=== PATIENT | male | born 1935 | race Caucasian/White ===

== ENCOUNTER → 2019-03-26 08:55 | Outpatient (BNVA) | payer MEDICARE, OTHER, SELFPAY | PROVIDERS: Family Provider Nurse Practitioner; PCP Nurse Practitioner; Visit Provider Nurse Practitioner | DX: I10 Essential (primary) hypertension (principal); E11.65 Type 2 diabetes mellitus with hyperglycemia; E78.2 Mixed hyperlipidemia; R42 Dizziness and giddiness; E11.9 Type 2 diabetes mellitus without complications; I25.10 Atherosclerotic heart disease of native coronary artery without angina pectoris | CPT/HCPCS: 80053; 83036 ==

== ENCOUNTER 2019-09-01 09:22 | Outpatient (CLI) | payer MEDICARE, OTHER, SELFPAY ==
--- NOTE | 2019-09-01 09:30 | USCV_ITS ---
Phoenix Veras Age: 83 Gender: M : 1935 Exam Date: 09/01/2019 09:44 Ordering Phys: Rafael Castro MD ([email or web address]) Technologist: Deja Calderon Exam Location: [facility] – [place] Indication: STENOSIS Risk Factors: Previous Vascular Surgery: Right Brachial BP: / Left Brachial BP: / Right Left Velocity (cm/s) Spectral Plaque Velocity (cm/s) Spectral Plaque Syst/Diast Broadening Syst/Diast Broadening 59.50/ 16.50 Prox CCA 57.70 / 12.40 65.05/ 13.75 Mid CCA 50.40 / 8.80 54.00/ 7.70 Distal CCA 38.20 / 6.20 51.80/ 16.50 Prox ICA 35.20 / 12.20 61.70/ 15.40 Mid ICA 37.90 / 10.20 87.10/ 29.80 Distal ICA 87.10 / 18.30 109.20 ECA 78.00 1.36 ICA/CCA 1.73 Antegrade Vertebral Antegrade 43.00/ 12.10 cm/s 47.00/ 12.60 cm/s Tri Subclavian Tri 66.50 139.6 0 FINDINGS Moderate dense irregular plaques of the right bifurcation and proximal internal carotid artery. Minimal plaques at the left bifurcation and proximal carotid artery. Antegrade flow in the vertebral arteries bilaterally. Normal Doppler flow velocities in the external carotid arteries bilaterally. CONCLUSIONS Moderate dense irregular plaques of the right bifurcation and proximal internal carotid arterywith velocity elevation consistent with 16-49% stenosis. Minimal plaques at the left bifurcation and proximal carotid artery. Compared to the study from 05/13/2018, there may not be a significant change Dr Rafael Castro MD [facility] (Electronically Signed) Final Date: 02 September 2019 13:39 S
== END 2019-09-01 09:23 | disposition home or self-care (01) ==
LOC: US 09:27
PROVIDERS: PCP Nurse Practitioner; Visit Provider Internal Medicine Cardiovascular Disease
DX: I65.23 Occlusion and stenosis of bilateral carotid arteries (principal)
CPT/HCPCS: 93880

== ENCOUNTER → 2019-09-08 08:59 | Outpatient (BNVA) | payer MEDICARE, OTHER, SELFPAY | PROVIDERS: PCP Nurse Practitioner; Visit Provider Nurse Practitioner | DX: E11.65 Type 2 diabetes mellitus with hyperglycemia (principal); I10 Essential (primary) hypertension; E78.2 Mixed hyperlipidemia; I25.10 Atherosclerotic heart disease of native coronary artery without angina pectoris; Z79.4 Long term (current) use of insulin | CPT/HCPCS: 80053; 80061; 81000; 82044; 83036 ==

== ENCOUNTER → 2019-12-08 08:26 | Outpatient (BNVA) | payer MEDICARE, OTHER, SELFPAY | PROVIDERS: PCP Nurse Practitioner; Visit Provider Nurse Practitioner | DX: E11.65 Type 2 diabetes mellitus with hyperglycemia (principal); Z79.4 Long term (current) use of insulin; I10 Essential (primary) hypertension; I25.10 Atherosclerotic heart disease of native coronary artery without angina pectoris; E78.2 Mixed hyperlipidemia; I65.23 Occlusion and stenosis of bilateral carotid arteries | CPT/HCPCS: 80053; 83036 ==

== ENCOUNTER → 2020-02-01 08:50 | Outpatient (BNVA) | payer MEDICARE, OTHER, SELFPAY | PROVIDERS: PCP Nurse Practitioner; Visit Provider Nurse Practitioner | DX: I10 Essential (primary) hypertension (principal); E11.65 Type 2 diabetes mellitus with hyperglycemia; I25.10 Atherosclerotic heart disease of native coronary artery without angina pectoris; E78.2 Mixed hyperlipidemia; Z79.4 Long term (current) use of insulin | CPT/HCPCS: 80053; 80061; 83036 ==

== ENCOUNTER → 2020-05-05 12:13 | Outpatient (BNVA) | payer MEDICARE, OTHER, SELFPAY | PROVIDERS: PCP Nurse Practitioner; Visit Provider Nurse Practitioner | DX: I10 Essential (primary) hypertension (principal); E11.65 Type 2 diabetes mellitus with hyperglycemia; Z79.4 Long term (current) use of insulin; E78.2 Mixed hyperlipidemia; I25.10 Atherosclerotic heart disease of native coronary artery without angina pectoris; E13.49 Other specified diabetes mellitus with other diabetic neurological complication | CPT/HCPCS: 82043 ==

== ENCOUNTER → 2020-07-29 08:30 | Outpatient (BNVA) | payer MEDICARE, OTHER, SELFPAY | PROVIDERS: PCP Nurse Practitioner; Visit Provider Nurse Practitioner | DX: E11.65 Type 2 diabetes mellitus with hyperglycemia (principal); I25.10 Atherosclerotic heart disease of native coronary artery without angina pectoris; E78.2 Mixed hyperlipidemia; Z79.4 Long term (current) use of insulin; I10 Essential (primary) hypertension | CPT/HCPCS: 80053; 80061; 81000; 83036 ==

== ENCOUNTER 2020-08-09 07:20 | Inpatient (IN) | payer MEDICARE, OTHER, SELFPAY ==
[2020-08-09] VITALS (74 sets, daily range): BP systolic 98–183; BP diastolic 44–83; PULSE 47–117; RESP 14–35; TEMP 36.3–37.1; O2SAT 90–100; BMI 31.3
--- NOTE | 2020-08-09 07:27 | XRR_ITS ---
PROCEDURE INFORMATION: Exam: XR Chest Exam date and time: 08/09/2020 7:42 AM Age: 84 years old Clinical indication: Pain; Chest pressure; Additional info: Chest pain TECHNIQUE: Imaging protocol: XR of the chest. Views: 1 view. COMPARISON: CR Chest 2 views* [id number] 10/04/2016 12:39 PM FINDINGS: Lungs: There are diffuse bilateral interstitial pulmonary infiltrates. There is mild pulmonary vascular prominence. These findings could be due to heart failure with interstitial pulmonary edema though superimposed interstitial pneumonia cannot be excluded. Pleural spaces: Small pleural effusion blunts the right costophrenic angle. Heart/Mediastinum: The heart is not enlarged. There is calcification of the aortic arch. Bones/joints: Unremarkable. XR/XR chest 1V portable [id number] IMPRESSION: 1. There are diffuse bilateral interstitial pulmonary infiltrates with mild pulmonary vascular congestion. This may be due to heart failure with interstitial edema though superimposed interstitial pneumonia cannot be excluded. 2. Minimal right pleural effusion.
--- NOTE | 2020-08-09 07:28 | ECG_ITS ---
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 Measurements Intervals [place] Rate: 112 P: 56 MD: 238 QRS: 20 QRSD: 94 T: 105 QT: 281 QTc: 384 Interpretive Statements SINUS TACHYCARDIA WITH FIRST DEGREE AV BLOCK WITH OCCASIONAL VENTRICULAR PREMATURE COMPLEXES POSSIBLE ANTERIOR MYOCARDIAL INFARCTION , OF INDETERMINATE AGE [30 ms Q WAVE IN V3/V4, OR R < 0.2 mV IN V4] Compared to ECG 09/19/2015 17:23:41 First degree AV block now present Sinus rhythm no longer present Myocardial infarct finding still present Electronically Signed On 08-09-2020 19:06:56 CDT by Tree Hoffman M.D. [id number]
[2020-08-09] MEDS: heparin 5,000 unit/mL INJ 1 mL 4000 UNIT IVP (07:38)
[2020-08-09 07:39] LABS: Basophils # 0.1 10^3/uL (0.0-0.1); Basophils % 0.3 %; Eosinophils # 0.2 10^3/uL (0.0-0.8); Eosinophils % 1.2 %; Hematocrit 43.1 % (42.0-52.0); Hemoglobin 14.1 g/dL (11.7-16.6); Lymphocytes # 5.7 10^3/uL (0.8-4.8); Lymphocytes % 28.3 %; Mean Corpuscular HGB Conc 32.7 g/dL (30.0-36.0); Mean Corpuscular Hemoglobin 29.8 pg (28.0-34.0); Mean Corpuscular Volume 91.1 fL (80-94); Mean Platelet Volume 9.4 fL (7.4-10.4); Monocytes # 1.5 10^3/uL (0.2-0.9); Monocytes % 7.3 %; Neutrophils % 62.5 %; Nucleated Red Blood Cells % 0 %; Platelet Count 393 10^3/cmm (130-400); Red Blood Count 4.73 10^6/uL (4.1-5.3); Red Cell Distribution Width 13.7 % (12.1-15.1)
[2020-08-09] MEDS: clopidogrel 300 mg Tablet PO (07:40)
[2020-08-09] MEDS: aspirin 325 mg Tablet PO (07:40)
[2020-08-09] MEDS: FUROsemide 10 mg/mL SDV 10mL 60 MG IVP (07:40)
[2020-08-09] MEDS: nitroglycerin drip 50 MG/250 ML PREMIX IV (07:40)
--- NOTE | 2020-08-09 07:47 | W.ED.CHESTPA ---
HPI - Chest Pain General: Chief Complaint: Chest Pain Stated Complaint: CP History of Present Illness: HPI narrative: 84-year-old male with a history of heart disease. Presents emergency room with acute onset of chest pain this morning began while at rest radiating to the left side of his neck and his left shoulder. Adam distress on arrival with oxygen sats under difficult to assess where I will be tracking sats in the 60s. He does appear cyanotic he is in with lip having labored breathing with significant Rales. Patient has a known history of heart disease his last press test and echo were done in 2013. Echo at that time showed an EF of 40%. There is a note in the [facility] office records about his stent in the LAD and residual distal LAD lesion that was 40 to 50% that was in 1999 at another facility. Patient denies fever sweats or chills. He does usually take Plavix and Lasix. He has not been having chest pain or symptoms prior to today. MD complaint: chest pain Pertinent past history: coronary artery disease Onset (ago): hour(s) Timing of current episode: constant, increasing and still present Onset: during rest Pain location: left chest Pain radiation: neck and left shoulder Severity: severe Associated symptoms: Reports dyspnea and nausea; Deny abdominal pain, fever(s) or vomiting Review of Systems Const: Reports: fatigue; Denies: fever(s), chills, body aches, change in appetite or malaise Card: Reports: chest pain, edema, dyspnea on exertion and orthopnea Resp: Reports: dyspnea and chest congestion; Denies: productive cough or non-productive cough GI: Reports: nausea; Denies: abdominal pain, vomiting, hematemesis, coffee ground emesis, diarrhea, constipation, bloating, hematochezia or melena PFSH ED PFSH: Medical History Atherosclerotic heart disease of [place] coronary artery without angina pectoris Benign essential hypertension Bilateral carotid artery stenosis CVA (cerebral vascular accident) Enrolled in chronic care management History of ischemic cardiomyopathy Mixed hyperlipidemia Osteoarthritis Type 2 diabetes mellitus with hyperglycemia Surgical History H/O heart artery stent Family History Son CAD (coronary artery disease) Diabetes Father CAD (coronary artery disease) Sister Cancer Diabetes Brother Diabetes Family/Other Diabetes Other Heart disease Hypertension Denies family history of Clotting disorder Dementia Chronic kidney disease (CKD) Suicide Anesthesia complication Bleeding disorder Lung disease Stroke Social History Smoking and tobacco status: former smoker Smoking risk assessment/counseling performed?: No Alcohol intake: never Desire information about alcohol rehabilitation?: No Counseling given: No Desire information about substance/drug rehabilitation?: No Counseling given: No Caregiver/support person: No Lives independently: Yes Housing: House Marital status: / Number of children: 6 Pets and animals: Yes History of recent travel: No Current gender identity: Male Physical Exam Const: COMMON NORMALS: no acute distress GENERAL APPEARANCE: cooperative and comfortable ORIENTATION/CONSCIOUSNESS: Yes awake, Yes oriented to person, Yes oriented to place and Yes oriented to time HENMT: COMMON NORMALS: normocephalic, atraumatic, hearing grossly normal bilaterally and external ears normal HEAD & SCALP: normocephalic and atraumatic EXTERNAL EAR: Yes external ears normal Neck/C-Spine: COMMON NORMALS: no JVD Resp: COMMON NORMALS: normal respiratory effort, No retractions, No use of accessory muscles and clear to auscultation bilaterally AUSCULTATION: clear to auscultation bilaterally Cardio: COMMON NORMALS: no JVD, regular rate, regular rhythm and No murmurs present (Cardio) RATE: regular rate RHYTHM: regular rhythm GI: COMMON NORMALS: Soft to palpation and No hepatosplenomegaly present AUSCULTATION: Yes normoactive bowel sounds PALPATION: Yes Soft to palpation, No Tenderness to palpation present (GI), No Guarding due to palpation present (GI) and Yes No hepatosplenomegaly present Extremity: COMMON NORMALS: normal to inspection, capillary refill normal and no calf tenderness GENERAL: Yes edema Neuro: SENSORIUM/ORIENTATION: Yes oriented to person, Yes oriented to place and Yes oriented to time Skin: COMMON NORMALS: no rashes or lesions noted GENERAL SKIN EXAM: no rashes or lesions noted Procedures Central Line Placement Right SC: Time Out Performed: Yes Patient Placed on Monitor/Pulse Ox: Yes Prep: mask, gown and gloves Central Line Prep: Chlorhexidine scrub Ultrasound Used for Placement: Yes Central Line Lumen Inserted: triple Post Procedure: sutured in place, good blood return, all ports aspirated, flushed, capped and sterile dressing applied Post Procedure X-Ray: tip of catheter in good position Patient Tolerated Procedure: well Complications: none Intubation Time out performed: Yes sedative: Etomidate Mg Given: 20 paralytic: Succinylcholine Mg Given: 100 Laryngoscope: fiber optic video scope Assist Device Used: fiber optic device ET Tube Size: 8 ET Tube Uncuffed: No Tube Secured Depth (cm): 20 Tube Placement Confirmation: visualized tube passing through cords, equal breath sounds bilaterally, no breath sounds over epigastrium and confirmation by capnometry Patient Tolerated Procedure: well Intubation Complications: none Course Vital Signs: Vital signs: Vital Signs Temperature 97.8 F 08/10/20 04:00 Pulse Rate 70 08/10/20 06:30 Respiratory Rate 14 08/10/20 06:04 Blood Pressure 120/58 08/10/20 06:30 Pulse Oximetry 97 08/10/20 06:30 MDM - Chest Pain MDM Narrative: Medical decision making narrative: Initial EKG shows ST elevation in V1-4. This is new compared to an old EKG of 09/19/2015. Initial labs were pending he was given 60 Lasix started on BiPAP and also started on nitro however the nitro dropped his pressure down to 90 systolic, initially been 183 systolic and was turned off. Is also been given aspirin and heparin. STEMI alert was called as soon as the EKG resulted EKG forwarded to Dr. Michelle he felt it was of more heart strain from heart failure recommended continued resuscitation and evaluation and he would see the patient later. Repeat EKG when breathing had improved showed continued but lessened ST elevation. Arrangements had been made for admission and patient went into sustained V. tach. He was cardioverted at 120 J and returned to a sinus rhythm within 1 minute of that the patient resumed AV V. tach rhythm which she was cardioverted out of again with 120 J. He was then given 300 of amiodarone and started on amiodarone drip. His blood pressure began to worsen and he was started on dopamine and then Levophed. At various times patient rhythm began to change there was a concern he would go into V. tach again. I elected to intubate the patient because of his deteriorating condition and he was intubated by RSI without complication. Central line was placed because of large numbers of drips that were required. He was placed on fentanyl and Versed for sedation while on ventilator. He is also on amiodarone dopamine and Levophed. Patient transferred to ICU Dr. Lewis has assumed care of the patient Dr. Michelle has been consulted. After the patient had been cardioverted x2 Dr. Michelle did come to the trauma room seeing the patient reviewed the EKGs recommended admission to the ICU concurred with her treatment thus far.. Lab Data: Labs: Lab Results 08/09/20 08/09/20 08/09/20 Range/Units 07:29 07:30 07:30 WBC 20.0 H (4.0-10.0) 10^3/ uL RBC 4.73 (4.1-5.3) 10^6/u L Hgb 14.1 (11.7-16.6) g/dL Hct 43.1 (42.0-52.0) % MCV 91.1 (80-94) fL MCH 29.8 (28.0-34.0) pg MCHC 32.7 (30.0-36.0) g/dL RDW 13.7 (12.1-15.1) % Plt Count 393 (130-400) 10^3/c mm MPV 9.4 (7.4-10.4) fL Neut % (Auto) 62.5 % Lymph % (Auto) 28.3 % [place] % (Auto) 7.3 % Eos % (Auto) 1.2 % Baso % (Auto) 0.3 % Neut # (Auto) 12.50 H (1.8-7.7) 10^3/u L Lymph # (Auto) 5.7 H (0.8-4.8) 10^3/u L [place] # (Auto) 1.5 H (0.2-0.9) 10^3/u L Eos # (Auto) 0.2 (0.0-0.8) 10^3/u L Baso # (Auto) 0.1 (0.0-0.1) 10^3/u L Nucleated RBC % (a uto) 0 % Nucleated RBCs # 0.0 /100WBC PT (12.1-14.9) SECO NDS INR (0.8-1.2) APTT (23.9-36.7) SECO NDS D-Dimer (0-0.59) ug/mIFE U Specimen Type Arterial Sample Site Brachial, left ABG pH 7.21 L (7.35-7.45) ABG pCO2 58.3 H (35-45) mmHg ABG pO2 148.0 H (80.0-100.0) mmH g ABG HCO3 23.3 (22-26) mmol/L ABG O2 Saturation 98.4 ABG Base Excess -5.4 L (-2.0-2.0) mmol/ L Brandon Test N/a A-a O2 Gradient 64.7 H (5-10) mmHg Hematocrit 44.1 (42-52) % Hgb O2 Saturation 96.7 (95-100) % Carboxyhemoglobin 0.6 (0.4-20.1) %THgb Methemoglobin 1.1 (0.4-1.5) % Total Hemoglobin 14.4 (14-18) g/dL Sodium 133.0 133 L (131-143) mmol/L Potassium 4.2 4.5 (3.5-5.0) mmol/L Glucose 285.0 H 254 H (70-115) mg/dL Ionized Calcium 1.2 (1.1-1.4) mmol/L O2 Delivery Device Nrb O2 Liters/Min 15.0 % FiO2 100.0 % Corporate Claims Examiner ID Amh Chloride 96 L (98-107) mmol/L Carbon Dioxide 21 L (22-29) mmol/L Anion Gap 20.5 H (5-19) BUN 13 (8-23) mg/dL Creatinine 0.7 (0.7-1.2) mg/dL GFR Calculation Not Reportable Calculated Osmolal ity 285 (285-295) mOsm/k g Lactate (0.5-2.2) mmol/L Calcium 9.0 (8.5-10.5) mg/dL Magnesium (1.7-2.3) mg/dL Total Bilirubin 0.5 (0.15-1.2) mg/dL AST 17 (0-40) U/L ALT 10 (0-41) U/L Alkaline Phosphata se 72 (40-130) IU/L Troponin T Baselin e (0-15) ng/L C-Reactive Protein (0.0-4.9) mg/L NT-Pro-B Natriuret Pep (0-450) pg/mL Total Protein 7.2 (6.6-8.7) g/dL Albumin 4.0 (3.5-5.2) g/dL Globulin 3.2 (1.3-4.6) g/dL Procalcitonin (0-0.5) ng/mL Serum Ketones (Negative) 08/09/20 08/09/20 08/09/20 Range/Units 07:30 07:30 07:30 WBC (4.0-10.0) 10^3/ uL RBC (4.1-5.3) 10^6/u L Hgb (11.7-16.6) g/dL Hct (42.0-52.0) % MCV (80-94) fL MCH (28.0-34.0) pg MCHC (30.0-36.0) g/dL RDW (12.1-15.1) % Plt Count (130-400) 10^3/c mm MPV (7.4-10.4) fL Neut % (Auto) % Lymph % (Auto) % [place] % (Auto) % Eos % (Auto) % Baso % (Auto) % Neut # (Auto) (1.8-7.7) 10^3/u L Lymph # (Auto) (0.8-4.8) 10^3/u L [place] # (Auto) (0.2-0.9) 10^3/u L Eos # (Auto) (0.0-0.8) 10^3/u L Baso # (Auto) (0.0-0.1) 10^3/u L Nucleated RBC % (a uto) % Nucleated RBCs # /100WBC PT 14.10 (12.1-14.9) SECO NDS INR 1.06 (0.8-1.2) APTT 30.3 (23.9-36.7) SECO NDS D-Dimer 1.26 H (0-0.59) ug/mIFE U Specimen Type Sample Site ABG pH (7.35-7.45) ABG pCO2 (35-45) mmHg ABG pO2 (80.0-100.0) mmH g ABG HCO3 (22-26) mmol/L ABG O2 Saturation ABG Base Excess (-2.0-2.0) mmol/ L Brandon Test A-a O2 Gradient (5-10) mmHg Hematocrit (42-52) % Hgb O2 Saturation (95-100) % Carboxyhemoglobin (0.4-20.1) %THgb Methemoglobin (0.4-1.5) % Total Hemoglobin (14-18) g/dL Sodium (131-143) mmol/L Potassium (3.5-5.0) mmol/L Glucose (70-115) mg/dL Ionized Calcium (1.1-1.4) mmol/L O2 Delivery Device O2 Liters/Min % FiO2 % Corporate Claims Examiner ID Chloride (98-107) mmol/L Carbon Dioxide (22-29) mmol/L Anion Gap (5-19) BUN (8-23) mg/dL Creatinine (0.7-1.2) mg/dL GFR Calculation Calculated Osmolal ity (285-295) mOsm/k g Lactate (0.5-2.2) mmol/L Calcium (8.5-10.5) mg/dL Magnesium (1.7-2.3) mg/dL Total Bilirubin (0.15-1.2) mg/dL AST (0-40) U/L ALT (0-41) U/L Alkaline Phosphata se (40-130) IU/L Troponin T Baselin e 31 H (0-15) ng/L C-Reactive Protein (0.0-4.9) mg/L NT-Pro-B Natriuret Pep (0-450) pg/mL Total Protein (6.6-8.7) g/dL Albumin (3.5-5.2) g/dL Globulin (1.3-4.6) g/dL Procalcitonin (0-0.5) ng/mL Serum Ketones (Negative) 08/09/20 08/09/20 08/09/20 Range/Units 07:30 07:46 07:46 WBC (4.0-10.0) 10^3/ uL RBC (4.1-5.3) 10^6/u L Hgb (11.7-16.6) g/dL Hct (42.0-52.0) % MCV (80-94) fL MCH (28.0-34.0) pg MCHC (30.0-36.0) g/dL RDW (12.1-15.1) % Plt Count (130-400) 10^3/c mm MPV (7.4-10.4) fL Neut % (Auto) % Lymph % (Auto) % [place] % (Auto) % Eos % (Auto) % Baso % (Auto) % Neut # (Auto) (1.8-7.7) 10^3/u L Lymph # (Auto) (0.8-4.8) 10^3/u L [place] # (Auto) (0.2-0.9) 10^3/u L Eos # (Auto) (0.0-0.8) 10^3/u L Baso # (Auto) (0.0-0.1) 10^3/u L Nucleated RBC % (a uto) % Nucleated RBCs # /100WBC PT (12.1-14.9) SECO NDS INR (0.8-1.2) APTT (23.9-36.7) SECO NDS D-Dimer (0-0.59) ug/mIFE U Specimen Type Sample Site ABG pH (7.35-7.45) ABG pCO2 (35-45) mmHg ABG pO2 (80.0-100.0) mmH g ABG HCO3 (22-26) mmol/L ABG O2 Saturation ABG Base Excess (-2.0-2.0) mmol/ L Brandon Test A-a O2 Gradient (5-10) mmHg Hematocrit (42-52) % Hgb O2 Saturation (95-100) % Carboxyhemoglobin (0.4-20.1) %THgb Methemoglobin (0.4-1.5) % Total Hemoglobin (14-18) g/dL Sodium (131-143) mmol/L Potassium (3.5-5.0) mmol/L Glucose (70-115) mg/dL Ionized Calcium (1.1-1.4) mmol/L O2 Delivery Device O2 Liters/Min % FiO2 % Corporate Claims Examiner ID Chloride (98-107) mmol/L Carbon Dioxide (22-29) mmol/L Anion Gap (5-19) BUN (8-23) mg/dL Creatinine (0.7-1.2) mg/dL GFR Calculation Calculated Osmolal ity (285-295) mOsm/k g Lactate 3.5 H (0.5-2.2) mmol/L Calcium (8.5-10.5) mg/dL Magnesium (1.7-2.3) mg/dL Total Bilirubin (0.15-1.2) mg/dL AST (0-40) U/L ALT (0-41) U/L Alkaline Phosphata se (40-130) IU/L Troponin T Baselin e (0-15) ng/L C-Reactive Protein 15.1 H (0.0-4.9) mg/L NT-Pro-B Natriuret Pep 1061 H (0-450) pg/mL Total Protein (6.6-8.7) g/dL Albumin (3.5-5.2) g/dL Globulin (1.3-4.6) g/dL Procalcitonin 0.04 (0-0.5) ng/mL Serum Ketones Negative (Negative) 08/09/20 Range/Units 07:46 WBC (4.0-10.0) 10^3/ uL RBC (4.1-5.3) 10^6/u L Hgb (11.7-16.6) g/dL Hct (42.0-52.0) % MCV (80-94) fL MCH (28.0-34.0) pg MCHC (30.0-36.0) g/dL RDW (12.1-15.1) % Plt Count (130-400) 10^3/c mm MPV (7.4-10.4) fL Neut % (Auto) % Lymph % (Auto) % [place] % (Auto) % Eos % (Auto) % Baso % (Auto) % Neut # (Auto) (1.8-7.7) 10^3/u L Lymph # (Auto) (0.8-4.8) 10^3/u L [place] # (Auto) (0.2-0.9) 10^3/u L Eos # (Auto) (0.0-0.8) 10^3/u L Baso # (Auto) (0.0-0.1) 10^3/u L Nucleated RBC % (a uto) % Nucleated RBCs # /100WBC PT (12.1-14.9) SECO NDS INR (0.8-1.2) APTT (23.9-36.7) SECO NDS D-Dimer (0-0.59) ug/mIFE U Specimen Type Sample Site ABG pH (7.35-7.45) ABG pCO2 (35-45) mmHg ABG pO2 (80.0-100.0) mmH g ABG HCO3 (22-26) mmol/L ABG O2 Saturation ABG Base Excess (-2.0-2.0) mmol/ L Brandon Test A-a O2 Gradient (5-10) mmHg Hematocrit (42-52) % Hgb O2 Saturation (95-100) % Carboxyhemoglobin (0.4-20.1) %THgb Methemoglobin (0.4-1.5) % Total Hemoglobin (14-18) g/dL Sodium (131-143) mmol/L Potassium (3.5-5.0) mmol/L Glucose (70-115) mg/dL Ionized Calcium (1.1-1.4) mmol/L O2 Delivery Device O2 Liters/Min % FiO2 % Corporate Claims Examiner ID Chloride (98-107) mmol/L Carbon Dioxide (22-29) mmol/L Anion Gap (5-19) BUN (8-23) mg/dL Creatinine (0.7-1.2) mg/dL GFR Calculation Calculated Osmolal ity (285-295) mOsm/k g Lactate (0.5-2.2) mmol/L Calcium (8.5-10.5) mg/dL Magnesium 2.1 (1.7-2.3) mg/dL Total Bilirubin (0.15-1.2) mg/dL AST (0-40) U/L ALT (0-41) U/L Alkaline Phosphata se (40-130) IU/L Troponin T Baselin e (0-15) ng/L C-Reactive Protein (0.0-4.9) mg/L NT-Pro-B Natriuret Pep (0-450) pg/mL Total Protein (6.6-8.7) g/dL Albumin (3.5-5.2) g/dL Globulin (1.3-4.6) g/dL Procalcitonin (0-0.5) ng/mL Serum Ketones (Negative) EKG Data^: EKG 1: EKG interpretation date: 08/09/20 EKG interpretation time: 07:29 Ischemic changes: acute STEMI Interpretation: ST elevation in V1 through V4. Tachycardic at 112 VT interval prolonged 0.[address] elevation ME. Critical Care Time Critical Care Time: Critical Care Time: Yes Total Critical Care Time: 60 Attestation: This case had a high probability of a clinically significant, sudden, or life threatening deterioration of this patient's condition which required my full and direct attention, intervention and personal management. Discharge Plan Discharge Patient Disposition: Admitted As Inpatient Admit Provider: Oswaldo Lewis Clinical Impression: ST elevation myocardial infarction (STEMI), Wide-complex tachycardia, DM (diabetes mellitus), secondary, with neurologic complications, History of ischemic cardiomyopathy, Type 2 diabetes mellitus with hyperglycemia, Atherosclerotic heart disease of [place] coronary artery without angina pectoris Condition: Stable Coding Level of Care Code ED Bad Credit Collector for Chg Fwd Exam Comprehensive
--- NOTE | 2020-08-09 07:51 | USCV_ITS ---
Phoenix Veras Age: 84 Gender: M : 1935 Exam Date: 08/09/2020 08:02 Ordering Phys: Rickie Dotson DO Technologist: Altagracia Black [place] [facility] [place]: CHF BP: / HR: 108 Rhythm: Sinus Technical Quality: Technically difficult study MEASUREMENTS (Male / Female) Normal Values 2D ECHO LV Diastolic Diameter PLAX 4.3 cm 4.2 - 5.9 / 3.9 - 5.3 cm LV Systolic Diameter PLAX 3.4 cm LV Chamber Size 3.8 cm IVS Diastolic Thickness 1.0 cm 0.6 - 1.0 / 0.6 - 0.9 cm IVS Systolic Thickness 1.1 cm LVPW Diastolic Thickness 0.6 cm 0.6 - 1.0 / 0.6 - 0.9 cm LVPW Systolic Thickness 1.0 cm RV Chamber Size 3.5 cm LVOT Diameter 2.0 cm LV Ejection Fraction 2D Teich 41.2 % LA Diameter 2.6 cm LA Width 2.9 cm LA Height 3.7 cm RA Width 4.8 cm RA Height 3.6 cm Aorta at Sinotubular Diameter 2.2 cm M-MODE LV Diastolic Diameter MM 4.6 cm 4.2 - 5.9 / 3.9 - 5.3 cm LV Systolic Diameter MM 3.6 cm LV Ejection Fraction MM Teich 46.7 % IVS Diastolic Thickness MM 0.9 cm 0.6 - 1.0 / 0.6 - 0.9 cm IVS Systolic Thickness MM 1.0 cm LVPW Diastolic Thickness MM 0.8 cm 0.6 - 1.0 / 0.6 - 0.9 cm LVPW Systolic Thickness MM 0.7 cm RV Diastolic Diameter MM 2.9 cm Aortic Annulus Diameter 3.0 cm LA Ao Ratio MM 0.9 MV E Point Septal Separation 0.3 cm DOPPLER AV Peak Velocity 119.0 cm/s LVOT Peak Velocity 88.0 cm/s AV Area Cont Eq vti 2.4 cm squared AV Area Cont Eq pk 2.3 cm squared MV E' Velocity 8.0 cm/s TR Peak Velocity 249.3 cm/s TR Peak Gradient 24.9 mmHg TV Peak E Velocity 83.2 cm/s Right Atrial Pressure 8.0 mmHg Pulmonary Artery Systolic Pressu 32.9 mmHg PV Peak Velocity 100.0 cm/s RV Acceleration Time 0.1 s RV Ejection Time 0.2 s RV AcT/ET 0.4 FINDINGS Left Ventricle Normal left ventricular cavity size. Moderately decreased left ventricular systolic function. Left ventricular ejection fraction is estimated at 45 %. Right Ventricle The right ventricle is normal in size and function. Right Atrium The right atrium is normal in size. Left Atrium The left atrium is normal in size. Mitral Valve Structurally normal mitral valve without significant stenosis or prolapse. There is no mitral regurgitation. Aortic Valve Aortic valve sclerosis without stenosis or regurgitation. Tricuspid Valve Mild tricuspid valve regurgitation. Pulmonic Valve Structurally normal pulmonic valve without significant stenosis. There is no pulmonic regurgitation. Pericardium Normal pericardium without effusion. Aorta Normal ascending aorta dimension. CONCLUSIONS 1-Normal left ventricular cavity size. Moderately decreased left ventricular systolic function. Left ventricular ejection fraction is estimated at 45 %. 2-Aortic valve sclerosis without stenosis or regurgitation. 3-Structurally normal mitral valve without significant stenosis or prolapse. There is no mitral regurgitation. 4-There is no pericardial effusion. 5-No significant change since the prior echocardiogram study of 10/23/11. Delmy Santacruz MD (Electronically Signed) Final Date: 09 August 2020 22:10 S
[2020-08-09 07:57] LABS: INR 1.06 (0.8-1.2); Partial Thromboplastin Time 30.3 SECONDS (23.9-36.7)
[2020-08-09 08:03] LABS: Alanine Aminotransferase 10 U/L (0-41); Alkaline Phosphatase 72 IU/L (40-130); Blood Urea Nitrogen 13 mg/dL (8-23); Carbon Dioxide 21 mmol/L (22-29); Chloride 96 mmol/L (98-107); Globulin 3.2 g/dL (1.3-4.6); Glucose 254 mg/dL (65-115); Osmolality Calculated 285 mOsm/kg (285-295); Sodium 133 mmol/L (136-145); Total Bilirubin 0.5 mg/dL (0.15-1.2); Total Protein 7.2 g/dL (6.6-8.7)
[2020-08-09 08:04] LABS: Troponin(5th) Baseline 31 ng/L (0-15)
[2020-08-09 08:06] LABS: ABG PCO2 58.3 mmHg (35-45); ABG PH Result 7.21 (7.35-7.45); Alveolar-Arterial Oxygen Gradi 64.7 mmHg (5-10); Arterial Blood Gas Hematocrit 44.1 % (42-52); Base Excess ABG -5.4 mmol/L (-2.0-2.0); Blood Gas Operator Identificat AMH; Blood Gas Sample Site Brachial, left; Blood Gas Sample Type Arterial; Carboxyhemoglobin 0.6 %THgb (0.4-20.1); HCO3 ABG 23.3 mmol/L (22-26); HGB O2 Sat 96.7 % (95-100); Ionized Calcium Level - ABG 1.2 mmol/L (1.1-1.4); Methemoglobin 1.1 % (0.4-1.5); Oxygen Device NRB; Oxygen Saturation ABG 98.4; Potassium Level - ABG 4.2 mmol/L (3.5-5.0); Total Hemoglobin 14.4 g/dL (14-18)
[2020-08-09 08:08] LABS: Anion Gap 20.5 (5-19); Potassium 4.5 mmol/L (3.5-5.1)
[2020-08-09 08:09] LABS: Aspartate Amino Transferase 17 U/L (0-40)
[2020-08-09 08:11] LABS: Ketone (Acetest) Serum Negative (Negative)
--- NOTE | 2020-08-09 08:56 | PC.NURSE ---
Son in room , no acute distress. ' Blood cultures drawn, sent to lab
[2020-08-09 08:59] LABS: ABG PCO2 39.8 mmHg (35-45); ABG PH Result 7.37 (7.35-7.45); Arterial Blood Gas Hematocrit 43.7 % (42-52); Base Excess ABG -2.5 mmol/L (-2.0-2.0); Blood Gas Allen Test Pos; Blood Gas Sample Type Arterial; Carboxyhemoglobin 0.1 %THgb (0.4-20.1); HCO3 ABG 22.7 mmol/L (22-26); Ionized Calcium Level - ABG 1.2 mmol/L (1.1-1.4); Methemoglobin 0.9 % (0.4-1.5); Total Hemoglobin 14.3 g/dL (14-18)
[2020-08-09 08:59] LABS: Lactate (Lactic Acid level) 3.5 mmol/L (0.5-2.2)
[2020-08-09 09:02] LABS: Alveolar-Arterial Oxygen Gradi 26.1 mmHg (5-10); Blood Gas Operator Identificat MONRO; Blood Gas Sample Site Radial, right; Oxygen Device BIPAP
[2020-08-09 09:08] LABS: NT Pro B Type Natriuretic Pept 1061 pg/mL (0-450); Procalcitonin 0.04 ng/mL (0-0.5)
--- NOTE | 2020-08-09 09:09 | CT_ITS ---
WS: [id number] CTA OF THE CHEST WITH PULMONARY EMBOLISM PROTOCOL TECHNIQUE: High-resolution contrast enhanced CTA of the chest with coronal and sagittal reformatted i mages with pulmonary embolism protocol. MIP images are also reviewed. CLINICAL INFORMATION: sob COMPARISON: None. DLP: 572.[address] scans at [facility] use at least one of these dose optimization techniques: automat ed exposure control; mA and/or kV adjustment per patient size (includes targeted exams where dose is matched to clinical indication); or iterative reconstruction. FINDINGS: Proximal main pulmonary arteries are normal. Normal segmental and subsegmental pulmonary arteries. No filling defects to indicate pulmonary embolus. Normal caliber thoracic aorta. Aortic calcification. Coronary calcification. Small right greater than left pulmonary effusions with compressive atelectasis in the lung bases. Flu id along the left fissure. Contained fluid along the right horizontal fissure. Slight hazy infiltrate s or atelectasis in both upper lobes. Endotracheal tube at the thoracic inlet. This could be advanced. No axillary lymphadenopathy. Calcifi ed right hilar lymph nodes. Adrenal glands are normal. CT/CT angio chest PE protcl [id number] IMPRESSION: 1. No evidence of pulmonary embolus. 2. Endotracheal tube with tip above the thoracic inlet. This could be advanced . 3. Small right greater than left pleural effusions. Compressive atelectasis in the lung bases. 4. Slight hazy infiltrates or atelectasis in both upper lobes.
[2020-08-09] MEDS: morphine 4 mg/mL SDV 1 mL IVP (09:14)
[2020-08-09] MEDS: ondansetron 2 mg/ML SDV 2 mL 4 MG IVP (09:15)
[2020-08-09 09:19] LABS: C Reactive Protein 15.1 mg/L (0.0-4.9)
[2020-08-09] MEDS: DOPamine drip 400 MG/250 ML PREMIX 17 MG IV (09:21)
[2020-08-09 09:22] LABS: D Dimer 1.26 ug/mIFEU (0-0.59)
[2020-08-09] MEDS: vecuronium 10 mg SDV IVP (09:26)
[2020-08-09] MEDS: succinylcholine 20 mg/mL SDV 10mL 100 MG IVP (09:27)
--- NOTE | 2020-08-09 09:28 | ECG_ITS ---
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 Measurements Intervals Gravel Switch Rate: 109 P: 262 TN: 235 QRS: -51 QRSD: 142 T: 88 QT: 353 QTc: 476 Interpretive Statements SINUS TACHYCARDIA WITH FIRST DEGREE AV BLOCK MARKED LEFT AXIS DEVIATION [QRS AXIS < -30] INTRAVENTRICULAR CONDUCTION DELAY [130+ ms QRS DURATION] Compared to ECG 08/09/2020 07:29:44 Left-axis deviation now present Intraventricular conduction delay now present Myocardial infarct finding no longer present Electronically Signed On 08-09-2020 19:14:38 CDT by Tree Hoffman M.D. [email or web address]/store/NU/[id number]/[id number] f
[2020-08-09] MEDS: midazolam 1 mg/mL INJ 2 mL 3 MG IVP (09:33)
[2020-08-09 09:41] LABS: Troponin 5 2HR 75.57 ng/L (0-15)
--- NOTE | 2020-08-09 09:59 | XRR_ITS ---
PROCEDURE INFORMATION: Exam: XR Chest Exam date and time: 08/09/2020 10:14 AM Age: 84 years old Clinical indication: Device placement; Other: Central line; Additional info: Post central line placement TECHNIQUE: Imaging protocol: XR of the chest. Views: 1 view. COMPARISON: CR XR chest 1V portable [id number] 08/09/2020 7:31 AM FINDINGS: Tubes, catheters and devices: A right subclavian catheter is present with the tip projecting in the SVC. Lungs: There are hazy perihilar interstitial infiltrates with vascular congestion. This has improved since previous study and consistent with heart failure with interstitial edema. There is opacification of the left base consistent with lower lobe atelectasis. . Pleural spaces: Small pleural effusions are present. No pneumothorax. Heart/Mediastinum: The cardiac silhouette is not enlarged. There is calcification of the aortic arch. Bones/joints: Unremarkable. XR/XR chest 1V portable [id number] IMPRESSION: 1. Satisfactory right subclavian catheter position. 2. Improving interstitial infiltrates. 3. Worsening left lower lobe atelectasis and left pleural effusion
[2020-08-09 10:02] LABS: Troponin 5 2HR Delta 44.57 ABS# (0-10)
[2020-08-09] MEDS: neomycin-poly-bacitracin oint 0.9 gm Pkt 1 APPLIC TOPICAL (10:15)
[2020-08-09] MEDS: iohexol 350 mg/mL 100 mL Btl IV (10:27)
--- NOTE | 2020-08-09 10:28 | PC.CHAP ---
Pastoral Care Encounter/Spiritual Assessment Type of Contact [] Declined biometrics specialist visit [] Patient/Family/Request visit [] Outpatient visit [] Follow-up visit [] Physician referral [] Code/Alert [x] Routine visit [] Staff referral [] Actively dying [] Patient sleeping [x] Family support [] [] Out of room [] Palliative care [] [] Receiving care in room [] Pre-surgical visit [] Trauma [] Long length of stay [x ICU visit [x] Other: met family in ER, prayed with family before code blue transferred from ER to ICU Relational/Emotional Strength [] Patient feels connected with others/family/visitors/staff [] Distress [] Loneliness/isolation [] Abandonment Spirituality of Patient [] Person of Barby [] Attends Sabianist of their Barby [] Believes in Prayer [] Reads Bible or Roman Catholic materials [] There are Spiritual issues to be addressed Mapping Pilot Interventions [x] Prayer [] Active listening [] Non-anxious presence [] Spiritual/emotional support [] Crisis/trauma care [] Spiritual counseling [] Bereavement support [] Provided bereavement packet [] Provided Bible/devotional materials [] Provided toy/stuffed animal, coloring book to patient or family member [] Provided Communion [] Anointing/Kenvir [] Salvation [x] Completed spiritual assessment [] Other: Impact on Illness or Injury [] Angry [] Fearful [] Anxious [] Often cries [] Exhaustion [] Unable to work [] Unable to attend advent [] Unable to walk/stand [] Unable to read [] Unable to drive [] Unable to eat/drink [] Unable to sleep [] Unable to be with family [] Patient intubated [] Other: Summary Time spent with patient
--- NOTE | 2020-08-09 10:37 | PC.NURSE ---
Pt to floor. Pt brought to floor from ER.
--- NOTE | 2020-08-09 10:56 | ECG_ITS ---
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 Measurements Intervals [place] Rate: 114 P: 263 PA: 218 QRS: -30 QRSD: 131 T: 81 QT: 359 QTc: 495 Interpretive Statements SINUS TACHYCARDIA WITH FIRST DEGREE AV BLOCK INTRAVENTRICULAR CONDUCTION DELAY [130+ ms QRS DURATION] ANTEROSEPTAL MYOCARDIAL INFARCTION [40+ ms Q WAVE IN V1-V4], PROBABLY RECENT Compared to ECG 08/09/2020 09:12:10 Myocardial infarct finding now present Left-axis deviation no longer present Electronically Signed On 08-09-2020 18:57:47 CDT by Tree Hoffman M.D. [id number] f
[2020-08-09 11:08] LABS: Glucose Point of Care 271 mg/dL (70-110)
[2020-08-09] MEDS: propofol 1,000 MG/100 ML INJ 2.7 MG IV (11:17)
--- NOTE | 2020-08-09 12:02 | PC.NURSE ---
Pt had several runs of Vtach. He was placed on the Zoll monitor. Pt returned quickly to SR without the need for shock. -ET tube is in place. -VS WNL
--- NOTE | 2020-08-09 12:17 | P.HP_ITS ---
Providers/Chief Complaint Admitting Physician: Oswaldo Lewis MD Primary Care Provider: Robert Marrero, CADET DECK-C Chief Complaint: CP History of Present Illness Phoenix Veras is a 84 year old male with a past medical history of CAD status post stenting x1 over 20 years ago, history of ischemic cardiomyopathy, right- sided CVA, COPD, quit smoking more than 20 years ago, history of type 2 diabetes mellitus, hypertension, hyperlipidemia, history of bilateral carotid artery stenosis, who presents to [facility] due to complaints of shortness of breath and chest pain Patient tells me over the last few weeks he has been progressively becoming more short of breath, 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 He tells me that for the last 2 days he stopped taking Lasix as it was making him feel well, and he felt it was not doing him any good as he continued to feel short of breath. No fevers, no chills, no cough, no known exposure to COVID-19, no recent history of pneumonia, received both pneumonia vaccinations, received both Covid vaccinations. He tells me he woke up this morning with shortness of breath and chest pain, the chest pain was substernal, nonradiating, no lightheadedness, no dizziness, no nausea, no vomiting, no diaphoresis. The chest pain lasted about 2 hours with a shortness of breath, so he decided to go to the emergency room. In the emergency room patient was found to have acute hypoxic respiratory failure with concerns for fluid overload was given 60 mg of Lasix, placed on BiPAP, his initial troponin was elevated, his EKG showed ST-T wave changes, cardiology was consulted, advised no acute intervention for this time, who recommended ICU admission for diuresis and monitoring. Patient was placed on a nitro drip, but his blood pressures did drop into the systolic 90s, so he was turned off. He was given aspirin, Plavix, heparin. Initially there was a STEMI alert that was called due to EKG changes, ST changes, however Dr. Michelle advised that there was no acute intervention, symptoms were likely from heart failure, advised of continued diuresis and I see admission. I have also had gone down and see the patient, he was alert oriented x3, answering all questions appropriately, breathing better, felt better, no active chest pain. CAROLE HAMEED was called at roughly 9 AM, no loss of pulse, patient was found to have V. fib, received 1 shock, went back into sinus tachycardia, alert oriented x3, doing well on BiPAP, complaining of chest pain, his EKG showed nonspecific ST-T wave changes, no significant ST elevations, patient had another episode of V. fib again was shocked, went back into sinus tachycardia, again alert oriented x3, saturating high 90s on BiPAP, his ABGs before CAROLE HAMEED pH 7.37, PCO2 39.8, PO2 107 on 50% FiO2 BiPAP. EKG again showed no acute ST-T wave changes, Dr. David came and also saw the patient, advised that there is no acute coronary intervention required, advised to continue diuresis, ICU level monitoring, as patient remained on BiPAP, there was concern for recurrent V. fib episodes in shocking, decision was made to intubate the patient to protect his airway. Patient was intubated by ER physician, placed on the vent, sedation, central line placed, placed on amiodarone drip, heparin drip, sedation, and transferred to the ICU. Patient was seen in ICU, currently on Versed drip, fentanyl drip, amiodarone, heparin drip, Levophed, dopamine. Nurses are currently weaning off Levophed and dopamine, Versed will be weaned off and he will be placed on propofol drip. Currently normal sinus rhythm. At 1234 patient developed wide-complex tachycardia, he had a pulse, blood pressures were 100s over 60s, he received a shock, 150 J, return to sinus tachycardia, he continued to have episodes of sustained wide-complex tachycardia, no loss of pulse, blood pressures were normotensive, his Levophed was increased to 20, he required a total of 6 shocks, up to 200 J, was placed on a lidocaine drip, propofol drip, received 4 g of magnesium, 5 mg of metoprolol, at roughly 1248, he remained in sinus tachycardia, Dr. David was present, he took the patient to cardiac catheterization lab, his mid LAD was stented He was brought to the the ICU, currently on lidocaine drip, amiodarone drip, fentanyl, propofol for sedation, on the vent, diuretics on hold, getting Zosyn for aspiration coverage, has a right central line in place, left femoral sheath .art in place At roughly 4:50 PM, patient had episodes of nonsustained wide-complex tachycardia, lasting a few seconds, likely reperfusion arrhythmias, he is on 1 of amiodarone, 1 of lidocaine, nonsustained, normotensive, no loss of pulse, will reorder labs, CBC, CMP Review of Systems Const: Denies: fever(s), chills, fatigue or malaise Eyes: Denies: change in vision or blurry vision ENMT: Denies: nasal congestion Card: Reports: chest pain and edema; Denies: palpitations or irregular heart rhythm Resp: Reports: dyspnea; Denies: productive cough, non-productive cough or wheezing GI: Denies: abdominal pain, nausea, vomiting, hematemesis, diarrhea, constipation, hematochezia or melena : Denies: flank pain, difficulty urinating, dysuria or urinary frequency Musc: Denies: neck pain or back pain Skin/Breast: Denies: rash Neuro: Denies: headache(s), dizziness or vertigo Psych: Denies: anxiety or depression Endo: Denies: polyuria or polydipsia Medications/Allergies Home Medications Medication Instructions Recorded Confirmed Last Taken Type meclizine 25 mg tablet 25 mg PO BID PRN 03/25/19 08/09/20 Unknown History albuterol sulfate 2.5 mg INHALATION QID PRN #300 ml 06/22/19 08/09/20 Unknown Rx arformoterol 15 mcg/2 mL solution 2 ml INHALATION BID #120 ml 06/22/19 08/09/20 Unknown Rx for nebulization Diabetic shoes #1 ea 05/05/20 08/09/20 Unknown Rx aspirin 81 mg tablet,delayed 81 mg PO DAILY 07/28/20 08/09/20 Unknown History release amlodipine 10 mg tablet 10 mg PO QDAY #90 tab 07/29/20 08/09/20 Unknown Rx atorvastatin 40 mg tablet 40 mg PO QDAY #90 tab 07/29/20 08/09/20 Unknown Rx clonidine HCl 0.1 mg tablet 0.1 mg PO BID #180 tab 07/29/20 08/09/20 Unknown Rx clopidogrel 75 mg tablet 75 mg PO QDAY #90 tab 07/29/20 08/09/20 Unknown Rx furosemide 20 mg tablet 20 mg PO QAM PRN #90 tab 07/29/20 08/09/20 Unknown Rx gabapentin 100 mg capsule 100 mg PO DAILY #90 cap 07/29/20 08/09/20 Unknown Rx liraglutide 0.6 mg/0.1 mL (18 mg/3 1.8 mg SUBCUT DAILY #9 ml 07/29/20 08/09/20 Unknown Rx mL) subcutaneous pen injector losartan 100 mg tablet 100 mg PO QDAY #90 tab 07/29/20 08/09/20 Unknown Rx metformin 1,000 mg tablet 1,000 mg PO BID #180 tab 07/29/20 08/09/20 Unknown Rx metoprolol succinate 100 mg 100 mg PO QDAY #90 tab 07/29/20 08/09/20 Unknown Rx tablet,extended release 24 hr pen needle, diabetic 33 gauge x #100 each 07/29/20 08/09/20 Unknown Rx Allergies Allergy/AdvReac Type Severity Reaction Status Date / Time quinapril [From Accupril] AdvReac Unknown cough Verified 07/28/20 08:08 PFSH Acute PFSH: Medical History Atherosclerotic heart disease of [place] coronary artery without angina pectoris Benign essential hypertension Bilateral carotid artery stenosis CVA (cerebral vascular accident) Enrolled in chronic care management History of ischemic cardiomyopathy Mixed hyperlipidemia Osteoarthritis Type 2 diabetes mellitus with hyperglycemia Surgical History H/O heart artery stent Family History Son CAD (coronary artery disease) Diabetes Father CAD (coronary artery disease) Sister Cancer Diabetes Brother Diabetes Family/Other Diabetes Other Heart disease Hypertension Denies family history of Clotting disorder Dementia Chronic kidney disease (CKD) Suicide Anesthesia complication Bleeding disorder Lung disease Stroke Social History Smoking and tobacco status: former smoker Smoking risk assessment/counseling performed?: No Alcohol intake: never Desire information about alcohol rehabilitation?: No Counseling given: No Desire information about substance/drug rehabilitation?: No Counseling given: No Caregiver/support person: No Lives independently: Yes Housing: House Marital status: / Number of children: 6 Pets and animals: Yes History of recent travel: No Current gender identity: Male Vitals/I&O/Wt Last Vital Signs Pulse 117 H 08/09/20 09:33 Resp 16 08/09/20 10:43 BP 105/55 08/09/20 09:33 Pulse Ox 98 08/09/20 10:43 08/08/20 08/09/20 08/09/20 22:59 06:59 14:59 Intake Total 69.429 / 69.429 Balance 69.429 / 69.429 Weight last 48 hrs Weight 90.718 kg Physical Exam Narrative: EXAM NARRATIVE: now intubated, and sedated Has a right central line in place Has a left femoral/art line in place Const: COMMON NORMALS: no acute distress and patient oriented x3 Eye: COMMON NORMALS: Equal, round and reactive pupils present Neck/C-Spine: COMMON NORMALS: no lymphadenopathy Resp: COMMON NORMALS: normal respiratory effort, No retractions, No use of accessory muscles and clear to auscultation bilaterally AUSCULTATION: clear to auscultation bilaterally Cardio: COMMON NORMALS: regular rate, regular rhythm, S1 normal heart sound present, S2 normal heart sound present, No gallops present (Cardio), No clicks present (Cardio) and No murmurs present (Cardio) RATE: regular rate RHYTHM: regular rhythm HEART SOUNDS: S1 normal heart sound present and S2 normal heart sound present GI: COMMON NORMALS: Normal to inspection, nondistended, normoactive bowel sounds present, Soft to palpation, non-tender and No hepatosplenomegaly present PALPATION: Yes Soft to palpation and Yes No hepatosplenomegaly present Neuro: COMMON NORMALS: patient oriented x3 Psych: COMMON NORMALS: mental status grossly normal, Normal thought process present and cooperative THOUGHT PROCESS: Normal thought process present Urinary Catheter Management^: Rankin: Cath Placed During This Visit: yes Urinary Catheter Date of Insertion: 08/09/20 Urinary Catheter Time of Insertion: 07:45 Data : 08/09/20 07:30 08/09/20 07:30 Micro: Microbiology 08/09/20 08:37 Blood Culture - Preliminary Blood SPECIMEN COLLECTED 08/09/20 08:48 Blood Culture - Preliminary Blood SPECIMEN COLLECTED A&P Assessment and plan (1) Acute respiratory failure with hypoxia: -Secondary to pulmonary edema, ischemic cardiomyopathy, CHF, NSTEMI, ventricular eefwghsnyh-vurj-rcijvhy tachycardia -Also concerns for aspiration event -likely secondary to LAD lesion -ct angiogram of the chest: 1. No evidence of pulmonary embolus. 2. Endotracheal tube with tip above the thoracic inlet. This could be advanced. 3. Small right greater than left pleural effusions. Compressive atelectasis in the lung bases. 4. Slight hazy infiltrates or atelectasis in both upper lobes. -Baseline troponin 31, 120-minute 75, delta 44, BNP 1061 -Repeat blood work shows lactic acid 2.5, mag 3.1, K 5.1, Co2 23 -WBC 20, no infiltrate on cxray Plan: -Currently in ICU -inutubated, sedated, on propofol and fentanyl for sedation, minimize PEEP to minimize FiO2, [place] scale -Has a right subclavian line in place -Left femoral/art line in place -Received aspirin, Plavix, statin -On Zosyn for aspiration pneumonia coverage -Heparin drip on hold -Bumex on hold -Metoprolol on hold -Levophed going at 20 maintain MAP more than 65 -on low dose sliding scale -cardiac echo ordered -carotid artery us ordered -previous carotid artery us showed: Moderate dense irregular plaques of the right bifurcation and proximal internal carotid arterywith velocity elevation consistent with 16-49% stenosis. Minimal plaques at the left bifurcation and proximal carotid artery -We will have to monitor for neurologic injury/hypoxic brain injury, but does withdraw from pain, pupils equal round reactive to light, did not lose a pulse during arrhythmia episodes, was fairly normotensive throughout his arrhythmia episodes -Full code -protonix for GI prophylaxis -Anticoagulation currently on hold given sheath in place -Dr. David cardiology for consult -status is critical, prognosis is gaurded Status: Acute (2) Wide-complex tachycardia: -has nonsutained wide complex tachycardia after stent placment -likely reperfusion arrhtymias -cardiology on consult -on lidocaine and amiodarone drip Status: Acute (3) NSTEMI (non-ST elevated myocardial infarction): Status: Acute (4) Type 2 diabetes mellitus with hyperglycemia: -insulin sliding scale Status: Chronic Qualifiers: Diabetes mellitus technician terminal and repeater insulin use: with group home use Qualified Code(s): E11.65 - Type 2 diabetes mellitus with hyperglycemia; Z79.4 - group home (current) use of insulin (5) Benign essential hypertension: Status: Chronic (6) Atherosclerotic heart disease of [place] coronary artery without angina pectoris: Status: Chronic Qualifiers: [place] vs. transplanted heart: [place] heart Qualified Code(s): I25.10 - Atherosclerotic heart disease of [place] coronary artery without angina pectoris (7) Bilateral carotid artery stenosis: Status: Acute (8) History of ischemic cardiomyopathy: Status: Acute (9) Mixed hyperlipidemia: Status: Chronic Attestations Medical Necessity Statement*: Patient requires hospitalization, inpatient, greater than 2 midnights, due to NSTEMI, CHF, aspiration, LAD lesion, status post stenting, critical care time spent over 2 hours Coding Level of Care Code Acute Admin Secretary for [facility] Fwd Exam Detailed Diagnoses Acute respiratory failure with hypoxia J96.01 Wide-complex tachycardia I47.2 NSTEMI (non-ST elevated myocardial infarction) I21.4 Type 2 diabetes mellitus with hyperglycemia E11.65; Z79.4 Diabetes mellitus group home insulin use: with technician terminal and repeater use Benign essential hypertension I10 Atherosclerotic heart disease of [place] coronary artery without angina pectoris I25.10 [place] vs. transplanted heart: [place] heart Bilateral carotid artery stenosis I65.23 History of ischemic cardiomyopathy Z86.79 Mixed hyperlipidemia E78.2
--- NOTE | 2020-08-09 12:34 | PC.NURSE ---
Change in condition 1234 pt began having runs of Vtach. Pt already on Zoll. Zoll administered shock of 150jules.Pt has pulse. Pt currently on Norepi at 15mcg/min. Dr Lewis notified. Dr David notified. Maurice núñez notified 1237 pt in Vtach. Zoll administered shock of 150jules. Pt has pulse 1238 pt in Vtach. Zoll administered shock of 200jules. Pt has pulse. Order given for Magnesium 4g. Magnesium given. 1239 Pt in Vtach. Zoll administered shock of 200 nurys. Order to increase norepi to 20mcg/min. Pt has pulse. 1243 Pt started on Lidocaine drip with loading dose of 90mg given. 1245 Pt in Vtach. Zoll administered shock of 200jules. Pt has pulse. Dr David is present and liaison inspection laboratory assistant has been notified of pt going stat. 1248 Pt in Vtach. Zoll administered shock of 200 nurys. Pt has pulse. Pt ordered Metoprolol 5mg IV push. 1249 Pt ordered second dose of Metoprolol 5mg IV push. Pt has pulse. Lockstitch Back Maker team present. 1250 Pt to liaison inspection laboratory assistant. Family present and updated on series of events both by nursing and physicians.
--- NOTE | 2020-08-09 12:46 | XACV_ITS ---
Exam Room: [facility] Ht: 170 cm Wt: 91 kg BSA: 2.10 m2 Gender: Male : 1935 Any Known Allergies: Other Exam Priority: Routine Procedure(s): Procedure Description: Diagnostic procedure Procedure Description: PCI procedure Procedure Description: Drug Eluting Coronary Stent Procedure Description: PTCA Procedure Description: Miscellaneous Procedure Description: ACT Procedure Description: Coronary Angiography Diagnostic Cath Status: Emergency Diagnostic Findings * Circumflex has no disease. * Left Main: significant 80% stenosis, HAMIDA: 3 flow. * Proximal Left Anterior Descending: total occlusion, HAMIDA: 0 flow. * Proximal Right Coronary Artery: luminal irregularities 20% stenosis, HAMIDA: 3 flow. * Coronary angiography shows right dominance. Interventional Findings * Left Main: 80% stenosis treated with a MDT R MARE 3.0X12 MARY, MDT NC EUPHORA RX [id number] BALLOON, MDT NC EUPHORA RX [id number] BALLOON, and MDT NC EUPHORA RX [id number] BALLOON. 0% residual stenosis, HAMIDA: 3 flow. Conclusions 1. There is total occlusion coronary artery disease with three vessel disease. 2. Left Main was treated with a Drug Eluting Stent, Balloon, Balloon, and Balloon. 3. Due to recurrent ventricular tachycardia and V. fib arrest patient was taken to the Nursery Hand. He was noted to have chronically occluded ostial LAD. RCA and circumflex were moderate size and caliber vessels without significant stenosis. Left main was noted to have proximal to mid 80% stenosis with severe dampening of the pressure when engaged.We tried to probe LAD which was chronically occluded but remained unsuccessful. We therefore proceeded with urgent left main intervention due to instability of patient with drug-coated balloon using 3.0 x 12 mm postdilated with 3.5x8 and 4.0 x 8 mm noncompliant balloon. Excellent angiographic result withTIMI-3 flow was noted. Patient was then transferred back to the ICU in relative stable condition.. Recommendations * 1-Return to inpatient for close monitoring and routine cath care 2-Risk factor modification for secondary prevention 3-Statin and aspirin 81 mg life--long, if tolerated 4-Patient was pre-loaded with 600 mg of Plavix, continue Plavix 75mg p.o. daily for at least one year. We will assess at the end of one year again to continue if further or not 5-Continue optimal medical management . Diagnostic RX Recommendation: PCI w/o planned CABG Pressures Phase:Rest AO : 81 / 39 ( 42 ) @ 12:14:00 PM 64 / 31 ( 39 ) @ 12:17:00 PM 117 / 56 ( 72 ) @ 12:27:00 PM 106 / 44 ( 64 ) @ 12:31:00 PM 95 / 41 ( 60 ) @ 12:40:00 PM 102 / 41 ( 63 ) @ 12:43:00 PM 94 / 45 ( 63 ) @ 1:07:00 PM Clinical Evaluation EBL: 5mL-10mL Procedural Details Procedure Consent Obtained. Pre-Procedure Time Out. Identified patient by full name and date of as verbalized by the patient/guarantor. Does the consent match the physician's order: Yes. Accurate & Complete Informed Consent: Yes. Inpatient/Outpatient History & Physical on Chart: Yes. If H&P is completed, is and addenduem needed: No; If yes, is the addendum complete: N/A. Visualize and Verify Site with Patient/Guarantor: N/A. Relevant Radiology Images available: N/A. Pre-op teaching completed and patient verbalized understanding. The risks, benefits, and alternatives of sedation and/or procedure were discussed by physician. The patient agrees to continue. Procedure started. Cardiovascular Instability: Yes, if yes, Persistant Ischemic Symptoms. Correct patient, site and procedure confirmed by cath team. PERRLA. Strong, equal hand lockstitch zipper setter bilaterally. Lungs clear x 5 lobes. Patient arrived to laborer mine on a ventilator and will be managed by respiratiory. right groin was prepped with chloroprep then draped in the usual sterile fashion. Physician notified. Baseline sample Acquired. HR: 75 BPM. [facility] Clinical Fraility Score: 4: Vulnerable. Nursery Hand Indications: ACS <= 24 hours, cardiac arrhythmia. Chest Pain Symptom Assessment: Typical Angina Symptoms. Physician arrived. Physician scrubbed in. Immediate Pre-Procedure Time Out. Correct Patient: Yes; Correct Procedure: N/A Emergent; Correct Site: N/A Emergent; Correct Patient Position: N/A Emergent; Correct Supplies: N/A Emergent; Dried Flammable Prep: N/A Emergent; Blood Products Available: N/A Emergent;. IV Site on Arrival: 18 gauge in the left wrist. IV Site on Arrival: TLC in the right subclavian. Lidocaine 1% infiltrated to the left groin. Arterial access obtained with micropuncture set. Pt arrived from ICU with AP pads on. Equipment: 6F - Femoral. Inventory is TR Glidewire Angled Stiff Shaft .035 260cm. Cardiac Cath Pack. ACIST Manifold Kit Model BT 2000. Heparinized Saline (2 units/mL), 1000 mL bag. Kit, Micropuncture. Glidewire inserted. A 5 [place] JR4 catheter in over wire. Pt arrived with multiple IV drips being monitored and adjusted by house superviser Salma. Multiple views taken of right coronary artery. Inventory is CRD 6FR XB 3 GUIDE. Catheter removed over the standard wire. 6 [place] XB 3 guide catheter was inserted over the wire. Runthrough guidewire was advanced through the guide catheter to lesion in the mid LAD. AB MINI TREK 1.50X6 RX BALLOON inserted for support to try to advance wire to lesion in LAD. Unable to cross lesion. Wire out. Guide catheter out. Inventory is CRD 6FR XB 3 SH GUIDE. 6 [place] XB 3 SH guide catheter was inserted over the wire. A 18 gauge IV was started in the right anticubital using aseptic technique. IV Fluids: 0.9% NaCl at KVO. 0 mL infused prior to laborer mine. Runthrough guidewire was advanced through the guide catheter to lesion in the LMCA distal end of wire seated in the circumflex. Inflation Number : 1 A MDT R MARE 3.0X12 MARY -Lot Number# [id number] exp date 05/04/2022 was prepped and advanced across the LMCA. The stent was deployed at 16 LILIBETH for 0:20 seconds. Stent balloon out over wire. Inflation number : 2 A MDT NC EUPHORA RX [id number] BALLOON was prepped and advanced across the LMCA , then inflated to 18 LILIBETH for 0:16 seconds. Inflation number: 3 The MDT NC EUPHORA RX 3.55P51MT BALLOON was reinflated across the LMCA, to 20 LILIBETH for 0:16 seconds. Inflation number: 4 The MDT NC EUPHORA RX 3.91Y75NO BALLOON was reinflated across the LMCA, to 20 LILIBETH for 0:13 seconds. Balloon out. Family updated. MDT NC EUPHORA RX 3.50X8MM BALLOON inserted. Unable to cross lesion. Balloon and wire out. Runthrough guidewire was advanced through the guide catheter to lesion in the prox Circ. A second Runthrough wire inserted to circumflex. One runthrough wire out. MDT NC EUPHORA RX 3.50X8MM BALLOON inserted. Unable to cross lesion. BMW guidewire was advanced through the guide catheter to lesion in the OM. Runthrough wire out. Inflation number : 5 A MDT NC EUPHORA RX 3.19F78AE BALLOON was prepped and advanced across the LMCA , then inflated to 12 LILIBETH for 0:14 seconds. Inflation number: 6 The MDT NC EUPHORA RX 3.98O41LU BALLOON was reinflated across the LMCA, to 12 LILIBETH for 0:15 seconds. Inflation number: 7 The MDT NC EUPHORA RX 3.76R07DM BALLOON was reinflated across the LMCA, to 14 LILIBETH for 0:16 seconds. Results checked. Inflation number: 8 The MDT NC EUPHORA RX 3.64O08OQ BALLOON was reinflated across the LMCA, to 16 LILIBETH for 0:33 seconds. Results checked. Balloon out. Inflation number : 9 A MDT NC EUPHORA RX 4.13V32TT BALLOON was prepped and advanced across the LMCA , then inflated to 12 LILIBETH for 0:28 seconds. Balloon out. Wire out. Guide catheter out. Physician scrubbed out. ACT drawn. Results 148 seconds. Therapeutic limits - pre-heparin administration 90-150 seconds and monitoring heparin during a vascular procedure >250 seconds. A Suture was successful obtaining hemostatsis at the Left Femoral artery insertion site. Sheath(s) sutured into position with 2-0 silk and sterile 4x4's and Op-site applied over the site. No oozing or signs and symptoms of hematoma noted. Arterial sheath flushed and connected to tranducer and pressure bag with heparinized saline. Post Procedure: Pulses reassessed and unchanged. PERRLA. Strong, equal hand lockstitch zipper setter bilaterally. No VTE prophylaxis required. Total IV fluids: 300 mL. Medication's Wasted: Lidocaine 1% = 10 mL. Medication's Wasted: Other = metoprol 5 mcg. Medication's Wasted: Heparin = 4000 units. Contrast type used: Omnipaque 300 mgI/mL, 500 mL bottle. Complications: none. Estimated blood loss: 5mL-10mL. Post-op diagnosis: LMCA stent. Procedure completed. Patient transferred by bed to ICU. Vital chart was stopped. Access Site Site: Left Femoral artery Sheath Size: 6 Fr Hemostasis Method: Suture Hemostasis Success: Successful Procedure Medications Start: 1:05 PM Stop: 1:05 PM Medication: Versed Amount: 2 mg Route: I.V. Start: 1:07 PM Stop: 1:07 PM Medication: Fentanyl Amount: 50 mcg Route: I.V. Start: 1:16 PM Stop: 1:16 PM Medication: Heparin Amount: 5000 units Route: I.V. Start: 1:29 PM Stop: 1:29 PM Medication: 0.9% Saline Amount: 250 ml Route: I.V. bolus Start: 1:30 PM Stop: 1:30 PM Medication: Fentanyl Amount: 50 mcg Route: I.V. Start: 1:33 PM Stop: 1:33 PM Medication: Aggrastat 12.5 mg/250 mL Amount: 45 ml Route: I.V. bolus Start: 1:33 PM Stop: 1:33 PM Medication: Aggrastat 12.5 mg/250 mL Amount: 16.2 ml/hr Route: I.V. drip Start: 2:14 PM Stop: 2:14 PM Medication: Heparin Amount: 5000 units Route: I.V. I, the attending physician, have reviewed and verified all procedure medications. Yes, all medications given per verbal order History/Risk Factors Hypertension: No Dyslipidemia: No Peripheral Arterial Disease (PAD): No Myocardial Infarction (VT): No Obesity: No Renal Disease: No Prior Interventions PCI: Yes CABG: No Valve Surgery: No Report Signatures Finalized by Delmy Santacruz MD on 08/11/2020 10:47 PM
[2020-08-09 12:56] LABS: Magnesium 2.1 mg/dL (1.7-2.3)
--- NOTE | 2020-08-09 13:28 | ECG_ITS ---
[facility] Test Date: 2020-08-09 Pat Name: Phoenix Veras Department: Room: [facility] Gender: Male [employer]: : 1935 Requested By: Rickie Maldonado Order Number: [id number] Reza MD: Tree Hoffman M.D. Measurements Intervals [place] Rate: 47 P: 51 CT: 284 QRS: 9 QRSD: 117 T: 106 QT: 481 QTc: 427 Interpretive Statements SINUS BRADYCARDIA WITH FIRST DEGREE AV BLOCK POSSIBLE ANTERIOR MYOCARDIAL INFARCTION [30 ms Q WAVE IN V3/V4, OR R < 0.2 mV IN V4], OF INDETERMINATE AGE Compared to ECG 08/09/2020 10:04:42 Sinus tachycardia no longer present Intraventricular conduction delay no longer present Myocardial infarct finding still present Electronically Signed On 08-09-2020 19:13:17 CDT by Tree Hoffman M.D. [id number]
[2020-08-09] MEDS: metoprolol tartrate 1 mg/1 mL SDV 5 mL 5 MG IV (13:29)
--- NOTE | 2020-08-09 14:16 | P.CONIM_ITS ---
Providers/Reason For Consult Consulting Physician/Specialty*: Cardiology Reason for Consult*: Incessant VT, ventricular fibrillation Attending Physician: Oswaldo Lewis MD Primary Care Provider: BARAK Mcgregor History of Present Illness History of Present Illness Phoenix Veras is a 84 year old male past medical history significant ischemic cardiomyopathy, history of stent placement nearly 20 years ago to the LAD, history of COPD hypertension hyperlipidemia questionable compliance bilateral carotid artery disease peripheral vascular disease heart failure and unknown ejection fraction was struggling with worsening of shortness of breath PND orthopnea and heart failure symptoms. Today he came to the hospital and not able to breathe. He was started on BiPAP and given IV Lasix. I saw the patient in the ER along with Dr. Sanchez and Dr. Pagan for questionable ST elevation. After reviewing EKG it was decided that patient did not have ST elevation . We decided to stabilize the patient with diuresing and elective intubation since patient degenerated into V. fib requiring defibrillation. He was started on amiodarone. Later patient was transferred to ICU on Levophed and amiodarone drip. Patient continues to go in and out of sustained nonsustained polymorphic ventricle tachycardia and ventricular fibrillation. He was defibrillated x6 lidocaine on top of amiodarone drip, he was given IV metoprolol. At this point due to suspicion of ongoing ischemia I took patient to Wildlife Technician he was noted to have chronically occluded ostial LAD with mid LAD stent (Placed in 2000 as per family). Proximal to mid left main was significant more than 80% which was highly calcified vessel, It feeds to large circumflex vessel, RCA had luminal irregularity without significant stenosis. Due to cardiogenic shock, incessant VT despite of 2 antiarrhythmics we decided to proceed with left main revascularization which was performed with drug-eluting stent 3.0x12 postdilated multiple times with 3.5x6 and 4.0 x 8 mm noncompliant balloon at high pressure in order to achieve good approximation. Patient blood pressure stabilized as ventricular tachycardia improved he remained sinus rhythm throughout the rest of procedure and later transferred to the ICU in a relative stabilized condition Review of Systems Const: Denies: fever(s), chills, body aches, change in appetite, fatigue or malaise Eyes: Denies: change in vision, blurry vision or photophobia ENMT: Denies: nasal congestion Card: Reports: chest pain, edema, dyspnea on exertion and orthopnea; Denies: palpitations or irregular heart rhythm Resp: Reports: dyspnea and chest congestion; Denies: productive cough, non-productive cough or wheezing GI: Denies: abdominal pain, nausea, vomiting, hematemesis, coffee ground emesis, diarrhea, constipation, bloating, hematochezia or melena : Denies: flank pain, difficulty urinating, dysuria or urinary frequency Musc: Denies: neck pain or back pain Skin/Breast: Denies: rash Neuro: Denies: headache(s), dizziness or vertigo Psych: Denies: anxiety or depression Endo: Denies: polyuria or polydipsia All/Imm: Denies: acute wheezing Meds/Allergies Home Medications and Allergies Home Medications Medication Instructions Recorded Confirmed Last Taken Type meclizine 25 mg tablet 25 mg PO BID PRN 03/25/19 08/09/20 Unknown History albuterol sulfate 2.5 mg INHALATION QID PRN #300 ml 06/22/19 08/09/20 Unknown Rx arformoterol 15 mcg/2 mL solution 2 ml INHALATION BID #120 ml 06/22/19 08/09/20 Unknown Rx for nebulization Diabetic shoes #1 ea 05/05/20 08/09/20 Unknown Rx aspirin 81 mg tablet,delayed 81 mg PO DAILY 07/28/20 08/09/20 Unknown History release amlodipine 10 mg tablet 10 mg PO QDAY #90 tab 07/29/20 08/09/20 Unknown Rx atorvastatin 40 mg tablet 40 mg PO QDAY #90 tab 07/29/20 08/09/20 Unknown Rx clonidine HCl 0.1 mg tablet 0.1 mg PO BID #180 tab 07/29/20 08/09/20 Unknown Rx clopidogrel 75 mg tablet 75 mg PO QDAY #90 tab 07/29/20 08/09/20 Unknown Rx furosemide 20 mg tablet 20 mg PO QAM PRN #90 tab 07/29/20 08/09/20 Unknown Rx gabapentin 100 mg capsule 100 mg PO DAILY #90 cap 07/29/20 08/09/20 Unknown Rx liraglutide 0.6 mg/0.1 mL (18 mg/3 1.8 mg SUBCUT DAILY #9 ml 07/29/20 08/09/20 Unknown Rx mL) subcutaneous pen injector losartan 100 mg tablet 100 mg PO QDAY #90 tab 07/29/20 08/09/20 Unknown Rx metformin 1,000 mg tablet 1,000 mg PO BID #180 tab 07/29/20 08/09/20 Unknown Rx metoprolol succinate 100 mg 100 mg PO QDAY #90 tab 07/29/20 08/09/20 Unknown Rx tablet,extended release 24 hr pen needle, diabetic 33 gauge x #100 each 07/29/20 08/09/20 Unknown Rx Allergies Allergy/AdvReac Type Severity Reaction Status Date / Time quinapril [From Accupril] AdvReac Unknown cough Verified 07/28/20 08:08 Current Medications Current Medications Generic Name Dose Route Start Last Admin Trade Name Freq PRN Reason Stop Dose Admin Atorvastatin Calcium 40 mg 08/09/20 11:30 08/09/20 12:14 Atorvastatin 40 Mg Tablet PO Not Given DAILY CAN Clopidogrel Bisulfate 75 mg 08/09/20 11:30 08/09/20 12:14 Clopidogrel 75 Mg Tablet PO Not Given DAILY CAN Nitroglycerin/Dextrose 50 mg in 250 mls @ 0 mls/hr 08/09/20 07:30 08/09/20 07:48 Nitroglycerin Drip IV 0 mcg/min .Q0M CAN 0 mls/hr Titration Protocol Per Protocol Amiodarone HCl 900 mg/ 518 mls @ 0 mls/hr 08/09/20 09:15 08/09/20 09:20 Dextrose/ IV Miscellaneous IV 1 mg/min Supplies .Q0M CAN 34.5 mls/hr Administration Protocol Per Protocol Fentanyl 1,000 mcg/ Sodium 100 mls @ 0 mls/hr 08/09/20 09:15 08/09/20 09:23 Chloride IV 5 mcg/hr .Q0M CAN 0.5 mls/hr Administration Protocol Per Protocol Norepinephrine Bitartrate 4 mg 254 mls @ 0 mls/hr 08/09/20 09:15 08/09/20 12:25 / Dextrose IV 4 ml/hr .Q0M CAN 4 mls/hr Titration Protocol Per Protocol Propofol 1,000 mg in 100 mls @ 0 mls/hr 08/09/20 09:15 08/09/20 12:25 Diprivan IV 15 mcg/kg/min .Q0M CAN 8.2 mls/hr Titration Protocol Per Protocol Dopamine HCl/Dextrose 400 mg in 250 mls @ 17.01 mls/hr 08/09/20 09:30 08/09/20 11:30 Intropin Drip IV 5 mcg/kg/min CONT CAN 17 mls/hr Titration Protocol 5 MCG/KG/MIN Metoprolol Succinate 100 mg 08/09/20 11:00 08/09/20 12:13 Metoprolol Succinate Er (24 Hr) 100 Mg Tablet PO Not Given DAILY CAN Metoprolol Tartrate 5 mg 08/09/20 13:19 08/09/20 13:29 Metoprolol Tartrate 1 Mg/1 Ml Sdv 5 Ml IV 5 mg ONCE PRN Administration HEART RATE-HIGH Pantoprazole Sodium 40 mg 08/09/20 11:00 08/09/20 13:28 Pantoprazole 40 Mg Sdv IVP Not Given Q12H CAN PFSH Acute PFSH: Medical History Atherosclerotic heart disease of [place] coronary artery without angina pectoris Benign essential hypertension Bilateral carotid artery stenosis CVA (cerebral vascular accident) Enrolled in chronic care management History of ischemic cardiomyopathy Mixed hyperlipidemia Osteoarthritis Type 2 diabetes mellitus with hyperglycemia Surgical History H/O heart artery stent Family History Son CAD (coronary artery disease) Diabetes Father CAD (coronary artery disease) Sister Cancer Diabetes Brother Diabetes Family/Other Diabetes Other Heart disease Hypertension Denies family history of Clotting disorder Dementia Chronic kidney disease (CKD) Suicide Anesthesia complication Bleeding disorder Lung disease Stroke Social History Smoking and tobacco status: former smoker Smoking risk assessment/counseling performed?: No Alcohol intake: never Desire information about alcohol rehabilitation?: No Counseling given: No Desire information about substance/drug rehabilitation?: No Counseling given: No Caregiver/support person: No Lives independently: Yes Housing: House Marital status: / Number of children: 6 Pets and animals: Yes History of recent travel: No Current gender identity: Male Dietary Habits: Current diet type/program: diabetic Caffeine: Yes Exercise: 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 HEENT: No cyanosis. No icterus. No pallor. HEART: Regular S1 and S2. No murmur, rub or gallop. LUNGS: Clear to auscultate bilaterally. ABDOMEN: Soft, nontender and nondistended. Positive bowel sounds. No guarding, rebound or tenderness. CENTRAL NERVOUS SYSTEM: Grossly nonfocal. EXTREMITIES: Lower extremities without edema bilaterally. Pulses dopplerable in the lower extremities Urinary Catheter Management^: Rankin: Cath Placed During This Visit: yes Urinary Catheter Date of Insertion: 08/09/20 Urinary Catheter Time of Insertion: 07:45 Data Micro: Micro: Microbiology 08/09/20 08:37 Blood Culture - Pr eliminary Blood SPE[facility] 08/09/20 08:48 Blood Culture - Pr eliminary Blood SPECIMEN [facility] A&P Assessment and plan (1) Cardiac arrest: S/p defib currently neurological status intact Status: Acute (2) Recurrent ventricular tachycardia: Could be multifactorial including ischemic treated with drug-eluting stent to left main for revascularization, scar VT with CHF systolic decompensated heart failure. Continue diuresis continue beta-fermin and antiarrhythmics. Keep potassium near 4 and magnesium above 2. Continue clopidogrel beta-fermin. Status: Acute (3) CHF (congestive heart failure), NYHA class IV: Continue diuresis with IV Bumex Status: Acute (4) Bilateral carotid artery stenosis: Appear to be stable continue statin aspirin Status: Acute (5) Diabetes: As per medicine. Status: Acute (6) DM (diabetes mellitus), secondary, with neurologic complications: As per medicine Status: Chronic (7) Acute respiratory failure with hypoxia: On vent Status: Acute Consult Attestations Medical Necessity Statement: patient is in critical condition require continuation hospitalization in the ICU Coding Level of Care Code New Pt Acute Turret Punch Operator for Sami García Patient Type New History Comprehensive Exam Comprehensive Medical Decision Making High Complexity Diagnoses Cardiac arrest I46.9 Recurrent ventricular tachycardia I47.2 CHF (congestive heart failure), NYHA class IV I50.9 Bilateral carotid artery stenosis I65.23 Diabetes E11.9 DM (diabetes mellitus), secondary, with neurologic complications E13.49 Acute respiratory failure with hypoxia J96.01
--- NOTE | 2020-08-09 15:14 | PC.NURSE ---
Pt to floor Pt brought to floor from ER.
[2020-08-09] MEDS: lidocaine drip 2,000 MG/500 ML PREMIX 15 MG IV (15:50)
[2020-08-09] MEDS: piperacillin-tazobactam 3.375 GM in sodium chloride 0.9% (plus) 50 ML IV ×2 (16:08→23:40)
[2020-08-09 16:54] LABS: Basophils % 0.1 %; Hematocrit 37.7 % (42.0-52.0); Hemoglobin 12.4 g/dL (11.7-16.6); Lymphocytes # 0.9 10^3/uL (0.8-4.8); Lymphocytes % 5.8 %; Mean Corpuscular HGB Conc 32.9 g/dL (30.0-36.0); Mean Corpuscular Hemoglobin 29.6 pg (28.0-34.0); Mean Platelet Volume 9.4 fL (7.4-10.4); Monocytes # 0.9 10^3/uL (0.2-0.9); Monocytes % 5.5 %; Neutrophils # 13.74 10^3/uL (1.8-7.7); Nucleated Red Blood Cells % 0 %; Platelet Count 469 10^3/cmm (130-400); Red Blood Count 4.19 10^6/uL (4.1-5.3); Red Cell Distribution Width 13.8 % (12.1-15.1); White Blood Count 15.6 10^3/uL (4.0-10.0)
[2020-08-09 17:13] LABS: Alanine Aminotransferase 10 U/L (0-41); Albumin Level 3.5 g/dL (3.5-5.2); Alkaline Phosphatase 61 IU/L (40-130); Blood Urea Nitrogen 16 mg/dL (8-23); Calcium 7.8 mg/dL (8.5-10.5); Carbon Dioxide 23 mmol/L (22-29); Chloride 93 mmol/L (98-107); Globulin 2.6 g/dL (1.3-4.6); Glucose 265 mg/dL (65-115); Magnesium 3.1 mg/dL (1.7-2.3); Osmolality Calculated 274 mOsm/kg (285-295); Phosphorus 3.3 mg/dL (2.5-4.5); Sodium 127 mmol/L (136-145); Total Bilirubin 0.5 mg/dL (0.15-1.2); Total Protein 6.1 g/dL (6.6-8.7)
[2020-08-09 17:14] LABS: Anion Gap 16.1 (5-19); Aspartate Amino Transferase 23 U/L (0-40); Potassium 5.1 mmol/L (3.5-5.1)
[2020-08-09 17:15] LABS: Lactate (Lactic Acid level) 2.5 mmol/L (0.5-2.2)
--- NOTE | 2020-08-09 17:19 | XRR_ITS ---
PROCEDURE INFORMATION: Exam: XR Chest Exam date and time: 08/09/2020 5:37 PM Age: 84 years old Clinical indication: Device placement; Other: Og tube placement; Additional info: Og placement TECHNIQUE: Imaging protocol: XR of the chest. Views: 1 view. COMPARISON: CR XR chest 1V portable [id number] 08/09/2020 10:04 AM FINDINGS: Tubes, catheters and devices: The endotracheal tube is appropriately positioned in the distal thoracic trachea with the tip above the trisha. The orogastric tube extends into the distal thoracic esophagus. The tip lies above the diaphragmatic hiatus. The line is poorly visualized. The line may be doubled back on itself distally. There is a right subclavian central venous catheter which is appropriately positioned with the line tip in the lower SVC near the cavoatrial junction. Lungs: There is ill-defined opacity in the right perihilar region and left upper lung. Pleural spaces: There is a large left pleural effusion. Heart/Mediastinum: The cardiac silhouette is partially obscured. Bones/joints: Unremarkable. XR/XR chest 1V portable [id number] IMPRESSION: 1. Orogastric tube tip is above the diaphragmatic hiatus. The tube may be doubled back on itself, but is not well visualized. Recommend repositioning. 2. New large left pleural effusion.
[2020-08-09 17:36] LABS: Glucose Point of Care 295 mg/dL (70-110)
[2020-08-09 18:37] LABS: Partial Thromboplastin Time 219.7 SECONDS (23.9-36.7)
--- NOTE | 2020-08-09 18:40 | PC.NURSE ---
CRITICAL LAB: called at 1835 by lab PTT 219.7. Went to pt's room immediately after, reported value to Primary nurse ARNOLDO Jorgensen and Dr Santacruz who was in the room. Pt just back from sugar laboratory assistant, no interventions at this time.. Recheck again later to determine sheath removal time.
--- NOTE | 2020-08-09 18:41 | PC.NURSE ---
Shift summary 1400 Pt back from cath lab technologist. -[facility] Vented -HR 47 BP 108/52. -Sheath to right femoral. Dressing CDI. -Family updated 1634 Pt began having runs of Vtach, pause, then sofía to the 30's. Pt reconnected to Zoll. No shock has been administered. Dr Lewis and Dr David notified. Labs have been redrawn. Mexiletine 150mg q8h ordered. Norepi at 20, Propofol at 15, Fentanyl at 5, Amio at 1 and lido at 2. Pt still having short runs of vtach with sofía and pauses.
--- NOTE | 2020-08-09 19:02 | XRR_ITS ---
PROCEDURE INFORMATION: Exam: XR Chest Exam date and time: 08/09/2020 7:20 PM Age: 84 years old Clinical indication: Device placement; Other: Og tube placement; Additional info: Og placement TECHNIQUE: Imaging protocol: XR of the chest. Views: 1 view. COMPARISON: CR XR chest 1V portable [id number] 08/09/2020 5:32 PM FINDINGS: Tubes, catheters and devices: The orogastric tube tip is positioned near the diaphragmatic hiatus. The endotracheal tube tip is in the midthoracic trachea. There is a right subclavian central venous catheter which is appropriately positioned with the line tip in the lower SVC near the cavoatrial junction. Lungs: There is decreased opacity in the left lung. Pleural spaces: There is decreased left pleural fluid. Heart/Mediastinum: There is mild enlargement of the cardiac silhouette. Bones/joints: Unremarkable. XR/XR chest 1V portable [id number] IMPRESSION: NG tube tip is near the diaphragmatic hiatus. The tube should be advanced 10 cm.
--- NOTE | 2020-08-09 20:39 | XRR_ITS ---
PROCEDURE INFORMATION: Exam: XR Chest Exam date and time: 08/09/2020 8:44 PM Age: 84 years old Clinical indication: Device placement; Other: Og tube placement; Additional info: Ogt placement TECHNIQUE: Imaging protocol: XR of the chest. Views: 1 view. COMPARISON: CR (CHEST, ) 08/09/2020 7:18 PM FINDINGS: Tubes, catheters and devices: The or gas tube is in the stomach, extending well beyond the diaphragmatic hiatus. The tip is coiled in the distal stomach at least 30 cm beyond the diaphragmatic hiatus. There is a right subclavian central venous catheter which is appropriately positioned with the line tip in the lower SVC near the cavoatrial junction. The endotracheal tube is appropriately positioned in the distal thoracic trachea with the tip above the trisha. Lungs: Unchanged appearance of the lungs. Pleural spaces: No pneumothorax. Heart/Mediastinum: Unchanged appearance of the cardiomediastinal silhouette. Bones/joints: Unremarkable. XR/XR chest 1V portable [id number] IMPRESSION: Orogastric tube tip is in the distal stomach.
[2020-08-09] MEDS: bumetanide 0.25 mg/mL SDV 4 mL 1 MG IV (21:04)
[2020-08-09] MEDS: MEXILETINE 150 MG 1 EACH NG-TUBE (21:58)
[2020-08-09 22:00] LABS: Partial Thromboplastin Time 33.9 SECONDS (23.9-36.7)
[2020-08-09 22:05] LABS: Glucose Point of Care 229 mg/dL (70-110)
[2020-08-09] MEDS: pantoprazole 40 mg SDV IVP (22:46)
--- NOTE | 2020-08-09 22:58 | PC.NURSE ---
1899 Dr. Coombs at bedside Requested baseline EKG Instructed to pull sheath with a-line once PTT is less 45. [address] Coombs. 2007 Spoke with regarding bradycardia see orders 2044 Pt continued to have slow heart rate Discussed options with Dr. Coombs see orders 2114 D/c Sheath tip intact manual pressure held 20 minutes tolerated well
[2020-08-10] VITALS (103 sets, daily range): BP systolic 95–143; BP diastolic 46–82; PULSE 44–111; RESP 14–20; TEMP 36.6–37.3; O2SAT 91–98
[2020-08-10 04:23] LABS: ABG PCO2 35.4 mmHg (35-45); ABG PH Result 7.44 (7.35-7.45); Blood Gas Sample Type Arterial; HCO3 ABG 23.8 mmol/L (22-26); PO2 ABG 75.1 mmHg (80.0-100.0)
[2020-08-10] MEDS: bumetanide 0.25 mg/mL SDV 4 mL 1 MG IV ×3 (04:23→19:26)
[2020-08-10 04:24] LABS: Blood Gas Sample Site Brachial, right; Blood Gas Tidal Volume 0.48; Oxygen Device VENT
[2020-08-10] MEDS: MEXILETINE 150 MG 1 EACH NG-TUBE (05:05)
[2020-08-10 05:31] LABS: Basophils % 0.1 %; Hematocrit 36.3 % (42.0-52.0); Hemoglobin 11.8 g/dL (11.7-16.6); Lymphocytes # 0.8 10^3/uL (0.8-4.8); Lymphocytes % 5.5 %; Mean Corpuscular HGB Conc 32.5 g/dL (30.0-36.0); Mean Corpuscular Hemoglobin 29.4 pg (28.0-34.0); Mean Corpuscular Volume 90.3 fL (80-94); Mean Platelet Volume 9.5 fL (7.4-10.4); Monocytes # 1.3 10^3/uL (0.2-0.9); Monocytes % 9.1 %; Neutrophils # 11.77 10^3/uL (1.8-7.7); Neutrophils % 84.9 %; Nucleated Red Blood Cells % 0 %; Platelet Count 346 10^3/cmm (130-400); Red Blood Count 4.02 10^6/uL (4.1-5.3); Red Cell Distribution Width 13.8 % (12.1-15.1); White Blood Count 13.9 10^3/uL (4.0-10.0)
[2020-08-10 05:45] LABS: INR 1.13 (0.8-1.2)
--- NOTE | 2020-08-10 06:00 | ECG_ITS ---
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 Measurements Intervals [place] Rate: 97 P: TX: QRS: -58 QRSD: 114 T: 96 QT: 373 QTc: 475 Interpretive Statements ATRIAL FIBRILLATION LOW QRS VOLTAGE IN PRECORDIAL LEADS [QRS DEFLECTION < 1.0 mV IN CHEST LEADS] POSSIBLE RIGHT VENTRICULAR CONDUCTION DELAY [RSR (QR) IN V1/V2] INFERIOR MYOCARDIAL INFARCTION [40+ ms Q WAVE AND/OR ST/T ABNORMALITY IN II/aVF], PROBABLY OLD ANTEROSEPTAL MYOCARDIAL INFARCTION [40+ ms Q WAVE IN V1-V4], OF INDETERMINATE AGE Compared to ECG 08/09/2020 15:15:03 Low QRS voltage now present Sinus bradycardia no longer present First degree AV block no longer present Myocardial infarct finding still present Electronically Signed On 08-11-2020 19:02:47 CDT by Tree Hoffman M.D. [id number]
[2020-08-10 06:01] LABS: C Reactive Protein 42.1 mg/L (0.0-4.9); Magnesium 2.7 mg/dL (1.7-2.3); Phosphorus 4.3 mg/dL (2.5-4.5)
[2020-08-10 06:09] LABS: NT Pro B Type Natriuretic Pept 2920 pg/mL (0-450); Procalcitonin 0.44 ng/mL (0-0.5)
[2020-08-10 06:18] LABS: Alanine Aminotransferase 9 U/L (0-41); Albumin Level 3.3 g/dL (3.5-5.2); Alkaline Phosphatase 59 IU/L (40-130); Anion Gap 16.2 (5-19); Aspartate Amino Transferase 20 U/L (0-40); Blood Urea Nitrogen 16 mg/dL (8-23); Carbon Dioxide 23 mmol/L (22-29); Chloride 93 mmol/L (98-107); Globulin 2.7 g/dL (1.3-4.6); Glucose 161 mg/dL (65-115); Osmolality Calculated 271 mOsm/kg (285-295); Potassium 4.2 mmol/L (3.5-5.1); Sodium 128 mmol/L (136-145); Total Bilirubin 0.4 mg/dL (0.15-1.2)
[2020-08-10 06:21] LABS: Creatine Phosphokinase 337 U/L (39-308)
--- NOTE | 2020-08-10 07:00 | XR_ITS ---
WS: [id number] Portable AP semiupright chest, 08/10/2020 Clinical Data: sob Comparison: Portable chest, 08/09/2020. Findings: The endotracheal tube, nasogastric tube and right subclavian catheter remain in good positi on. There is pulmonary vascular congestion and a small left effusion unchanged. The aortic arch shows calcification. No nodules or masses are seen. No pneumothorax is present. There is a dextroscoliosis of the thoracic spine. Monitor leads are on the chest wall and there is a resuscitation paddle over the left upper quadrant and left lower chest. XR/XR chest 1V portable [id number] Impression: 1. Satisfactory position of multiple tubes. 2. Pulmonary vascular congestion and small left effusion unchanged.
[2020-08-10] MEDS: amiodarone 200 mg Tablet 400 MG PO (07:33)
[2020-08-10] MEDS: metoprolol tartrate 25 mg Tablet 12.5 MG PO ×2 (07:33→20:37)
[2020-08-10] MEDS: atorvastatin 40 mg Tablet PO (07:33)
[2020-08-10] MEDS: clopidogrel 75 mg Tablet PO (07:33)
[2020-08-10] MEDS: aspirin 81 mg EC Tablet PO (07:34)
[2020-08-10] MEDS: piperacillin-tazobactam 3.375 GM in sodium chloride 0.9% (plus) 50 ML IV ×3 (07:38→23:07)
[2020-08-10 09:14] LABS: Glucose Point of Care 210 mg/dL (70-110)
--- NOTE | 2020-08-10 10:37 | PC.CHAP ---
Pastoral Care Encounter/Spiritual Assessment Type of Contact [] Declined national investigative producer visit [] Patient/Family/Request visit [] Outpatient visit [] Follow-up visit [] Physician referral [] Code/Alert [x] Routine visit [] Staff referral [] Actively dying [] Patient sleeping [x] Family support [] [] Out of room [] Palliative care [] [] Receiving care in room [] Pre-surgical visit [] Trauma [] Long length of stay [x] ICU visit [] Other: Relational/Emotional Strength [] Patient feels connected with others/family/visitors/staff [] Distress [] Loneliness/isolation [] Abandonment Spirituality of Patient [] Person of Barby [] Attends Orthodox of their Barby [] Believes in Prayer [] Reads Bible or Methodist materials [] There are Spiritual issues to be addressed Pipeline Maintenance Supervisor Interventions [x] Prayer [] Active listening [] Non-anxious presence [] Spiritual/emotional support [] Crisis/trauma care [] Spiritual counseling [] Bereavement support [] Provided bereavement packet [] Provided Bible/devotional materials [] Provided toy/stuffed animal, coloring book to patient or family member [] Provided Communion [] Anointing/[place] [] Salvation [x] Completed spiritual assessment [] Other: Impact on Illness or Injury [] Angry [] Fearful [] Anxious [] Often cries [] Exhaustion [] Unable to work [] Unable to attend buddhism [] Unable to walk/stand [] Unable to read [] Unable to drive [] Unable to eat/drink [] Unable to sleep [] Unable to be with family [] Patient intubated [] Other: Summary Time spent with patient
[2020-08-10] MEDS: pantoprazole 40 mg SDV IVP ×2 (11:10→22:49)
[2020-08-10 11:11] LABS: Glucose Point of Care 202 mg/dL (70-110)
[2020-08-10] MEDS: lidocaine drip 2,000 MG/500 ML PREMIX 15 MG IV ×2 (13:32→22:58)
--- NOTE | 2020-08-10 16:06 | PC.NUTR ---
NUTR TF RECOMMENDATIONS: TF RECOMMENDATIONS: Pulmocare with goal rate of 45 ml/hr providing 1620 kcal (91%), 68 g PRO (75%), and 848 ml fluid (47%)(%NEEDS). Suggest starting TF at 25 ml/hr and increase by 10 ml Q6H as tolerated till goal rate is met. Suggest H2O flushes of 120 ml to approach fluid needs or per physician.
[2020-08-10 16:26] LABS: Glucose Point of Care 204 mg/dL (70-110)
--- NOTE | 2020-08-10 17:28 | USCV_ITS ---
Phoenix Veras Age: 84 Gender: M : 1935 Exam Date: 08/10/2020 05:55 Ordering Phys: Rickie Dotson DO Technologist: Janina Galloway Exam Location: [facility] – [place], [place] Indication: AMS Risk Factors: Previous Vascular Surgery: Right Brachial BP: / Left Brachial BP: / Right Left Velocity (cm/s) Spectral Plaque Velocity (cm/s) Spectral Plaque Syst/Diast Broadening Syst/Diast Broadening 76.10/ 9.90 Prox CCA 120.20/ 9.90 62.70/ 9.00 Mid CCA 95.90 / 11.00 66.30/ 10.70 Distal CCA 70.60 / 8.80 55.50/ 12.50 Prox ICA 57.30 / 10.20 74.30/ 18.10 Mid ICA 73.60 / 16.70 65.20/ 16.30 Distal ICA 79.60 / 19.60 112.50 ECA 145.90 0.98 ICA/CCA 0.66 Antegrade Vertebral Antegrade 23.10/ 5.10 cm/s 49.70/ 12.40 cm/s Tri Subclavian Tri 96.70 135.4 0 CONCLUSIONS Right ICA stenosis <50%. Mild calcified atheromatous plaque right carotid bulb/ICA. Left ICA stenosis <50%. Mild calcified atheromatous plaque left carotid bulb/ICA. Normal antegrade Doppler flow noted in the right vertebral artery. Normal antegrade Doppler flow noted in the left vertebral artery. Everton Serrano MD (Electronically Signed) Final Date: 10 August 2020 10:01 S
--- NOTE | 2020-08-10 17:56 | PC.NURSE ---
Shift Summary Pt at beginning of shift around 0715 began having long runs of Vtach. Dr David was already at bedside. Pt was put on Zoll for increased monitoring. Dr David ordered for Amio and Lido to be restarted and Levophed to be increased. Pt remained alert and was able to follow commands. ordered for PO Metoprolol 12.5, Amio 400mg, and aspirin 81 to be started. PO meds were given through OG tube. Pt's Vtach did subside. -- Pt remained unchanged continuing to have short runs of Vtach with pauses then going to Sinus. Urine output 800ml. Family has been updated throughout the day.
--- NOTE | 2020-08-10 18:12 | PM.PN ---
Subjective Subjective: Interval history: patient was seen this morning, he is on decreased sedation, follows commands on the ventilator, has had no arrhythmia event overnight, but this am had a few episodes of nonsustaining wide complex tachycardia, no loss of pulse, good urine output, afebrile, family updated yesterday Vitals/I&O/Wt Last Vital Signs Temp 98.5 F 08/10/20 15:00 Pulse 65 08/10/20 17:00 Resp 18 08/10/20 16:27 BP 120/58 08/10/20 17:00 Pulse Ox 95 08/10/20 17:00 08/10/20 08/10/20 08/10/20 06:59 14:59 22:59 Intake Total 102.567 / 828.867 115.50 / 115.50 50.833 / 166.333 Output Total 1125 / 2775 450 / 450 350 / 800 Balance -1022.433 / -1946.133 -334.50 / -334.50 -299.167 / -633.667 Weight last 48 hrs Weight 90.718 kg Physical Exam Narrative: EXAM NARRATIVE: on sedation can follow commands Const: COMMON NORMALS: no acute distress and patient oriented x3 Eye: COMMON NORMALS: Equal, round and reactive pupils present PUPIL: Yes Equal, round and reactive pupils present Chest: COMMONS NORMALS: normal inspection of the chest OTHER: right central line in place Resp: COMMON NORMALS: normal respiratory effort, No retractions, No use of accessory muscles and clear to auscultation bilaterally AUSCULTATION: clear to auscultation bilaterally Cardio: COMMON NORMALS: regular rate, regular rhythm, S1 normal heart sound present, S2 normal heart sound present, No gallops present (Cardio), No clicks present (Cardio) and No murmurs present (Cardio) RATE: regular rate RHYTHM: regular rhythm HEART SOUNDS: S1 normal heart sound present and S2 normal heart sound present GI: COMMON NORMALS: Normal to inspection, nondistended, normoactive bowel sounds present and Soft to palpation PALPATION: Yes Soft to palpation : OTHER: left femoral sheath site is clean and dry Extremity: COMMON NORMALS: no pedal edema Neuro: COMMON NORMALS: patient oriented x3 Urinary Catheter Management^: Rankin: Cath Placed During This Visit: yes Reason for Continuing Indwelling Catheter: Accurate Measurement of Urinary Output in Critically Ill Patients Urinary Catheter Date of Insertion: 08/09/20 Urinary Catheter Time of Insertion: 07:45 Data : 08/10/20 04:39 08/10/20 04:39 Micro: Microbiology 08/09/20 Unknown MRSA Culture - Final Nose 08/09/20 03:45 Gram Stain - Final Sputum - Endotracheal Tube Aspirate 08/09/20 08:48 Blood Culture - Preliminary Blood NEGATIVE TO DATE 08/09/20 08:37 Blood Culture - Preliminary Blood NEGATIVE TO DATE 08/09/20 03:30 Bacterial Antigens - Final Urine,Clean Catch A&P Assessment and plan (1) Acute respiratory failure with hypoxia: -Secondary to pulmonary edema, ischemic cardiomyopathy, CHF, NSTEMI, ventricular zzzfqnlali-mtug-pxokeba tachycardia -Also concerns for aspiration event -s/p MARY to left main -ct angiogram of the chest: 1. No evidence of pulmonary embolus. 2. Endotracheal tube with tip above the thoracic inlet. This could be advanced. 3. Small right greater than left pleural effusions. Compressive atelectasis in the lung bases. 4. Slight hazy infiltrates or atelectasis in both upper lobes. -Baseline troponin 31, 120-minute 75, delta 44, BNP 1061 Plan: -Currently in ICU -inutubated, sedated, on versed and fentanyl for sedation, minimize PEEP to minimize FiO2, Coggon scale -Has a right subclavian line in place -Left femoral/art line removed -Received aspirin, Plavix, statin -On Zosyn for aspiration pneumonia coverage -on lidoaciane drip, amiodarone drip, mixeletene OJ -Bumex 1mg q8h -Metoprolol 25mg BID -Levophed, will wean, maintain MAP more than 65 -on low dose sliding scale -cardiac echo ordered: EJF 45% -follows commands on the ventilator, nods his head, squeezes my finger, pupils equal round reactive to light -Full code -protonix for GI prophylaxis -lovenox for DVT ppx -Dr. David cardiology for consult -status is stable, prognosis is gaurded Status: Acute (2) Wide-complex tachycardia: -has nonsutained wide complex tachycardia after stent placment -likely reperfusion arrhtymias -cardiology on consult -on lidocaine and amiodarone drip and mixeletine Status: Acute (3) NSTEMI (non-ST elevated myocardial infarction): Status: Acute (4) Type 2 diabetes mellitus with hyperglycemia: -insulin sliding scale Status: Chronic (5) Benign essential hypertension: Status: Chronic (6) Atherosclerotic heart disease of tribal coronary artery without angina pectoris: Status: Chronic (7) Bilateral carotid artery stenosis: Status: Acute (8) History of ischemic cardiomyopathy: Status: Acute (9) Mixed hyperlipidemia: Status: Chronic Attestations Medical Necessity Statement*: patient requires hospitalizaition for acute respiratory failure, nstemi, wide complex tachycardia Coding Level of Care Code Acute Community Representative for [facility] Fwd Diagnoses Acute respiratory failure with hypoxia J96.01 Wide-complex tachycardia I47.2 NSTEMI (non-ST elevated myocardial infarction) I21.4 Type 2 diabetes mellitus with hyperglycemia E11.65 Benign essential hypertension I10 Atherosclerotic heart disease of tribal coronary artery without angina pectoris I25.10 Bilateral carotid artery stenosis I65.23 History of ischemic cardiomyopathy Z86.79 Mixed hyperlipidemia E78.2
[2020-08-10] MEDS: enoxaparin 40 mg/0.4 mL Syringe SUBCUT (18:27)
[2020-08-10 19:03] LABS: Alanine Aminotransferase 8 U/L (0-41); Albumin Level 3.1 g/dL (3.5-5.2); Alkaline Phosphatase 54 IU/L (40-130); Anion Gap 14.3 (5-19); Aspartate Amino Transferase 18 U/L (0-40); Blood Urea Nitrogen 17 mg/dL (8-23); Calcium 7.8 mg/dL (8.5-10.5); Carbon Dioxide 23 mmol/L (22-29); Chloride 93 mmol/L (98-107); Globulin 2.9 g/dL (1.3-4.6); Glucose 207 mg/dL (65-115); Magnesium 2.5 mg/dL (1.7-2.3); Osmolality Calculated 270 mOsm/kg (285-295); Phosphorus 3.4 mg/dL (2.5-4.5); Potassium 4.3 mmol/L (3.5-5.1); Sodium 126 mmol/L (136-145); Total Bilirubin 0.4 mg/dL (0.15-1.2)
--- NOTE | 2020-08-10 20:05 | PM.PN ---
Subjective Subjective: Interval history: Patient remained stable overnight due to bradycardia amiodarone and lidocaine was stopped. This morning patient had short burst of nonsustained ventricular tachycardia which is polymorphic. He mentate good stays stable vital gurrola Vitals/I&O/Wt Last Vital Signs Temp 98.1 F 08/10/20 19:00 Pulse 62 08/10/20 19:30 Resp 19 H 08/10/20 19:00 BP 126/61 08/10/20 19:30 Pulse Ox 96 08/10/20 19:30 08/10/20 08/10/20 08/10/20 06:59 14:59 22:59 Intake Total 102.567 / 828.867 115.50 / 115.50 50.833 / 166.333 Output Total 1125 / 2775 450 / 450 350 / 800 Balance -1022.433 / -1946.133 -334.50 / -334.50 -299.167 / -633.667 Weight last 48 hrs Weight 200 lb Physical Exam Narrative: EXAM NARRATIVE: GENERAL: Patient is awake remains intubated NECK: No jugular vein distension. HEENT: No cyanosis. No icterus. No pallor. HEART: Regular S1 and S2. No murmur, rub or gallop. LUNGS: Clear to auscultate bilaterally. ABDOMEN: Soft, nontender and nondistended. Positive bowel sounds. No guarding, rebound or tenderness. CENTRAL NERVOUS SYSTEM: Grossly nonfocal. EXTREMITIES: Lower extremities without edema bilaterally. Patient dopplerable bilateral pulses 410 legs looks good groin wound looks good Urinary Catheter Management^: Rankin: Cath Placed During This Visit: yes Reason for Continuing Indwelling Catheter: Accurate Measurement of Urinary Output in Critically Ill Patients Urinary Catheter Date of Insertion: 08/09/20 Urinary Catheter Time of Insertion: 07:45 Data : 08/10/20 04:39 08/10/20 18:35 Micro: Microbiology 08/09/20 Unknown MRSA Culture - Final Nose 08/09/20 03:45 Gram Stain - Final Sputum - Endotracheal Tube Aspirate 08/09/20 08:48 Blood Culture - Preliminary Blood NEGATIVE TO DATE 08/09/20 08:37 Blood Culture - Preliminary Blood NEGATIVE TO DATE 08/09/20 03:30 Bacterial Antigens - Final Urine,Clean Catch A&P Assessment and plan (1) Cardiac arrest: Appear to be stable though patient had short nonsustained episodes of ventricular tachycardia Status: Acute (2) Recurrent ventricular tachycardia: Could be multifactorial including ischemic treated with drug-eluting stent to left main for revascularization, scar VT with CHF systolic decompensated heart failure. Continue diuresis continue beta-fermin and antiarrhythmics. Keep potassium near 4 and magnesium above 2. I will restart patient on lidocaine and amiodarone since due to shot nonsustained ventricular tachycardia. Discussed with Dr. De La Garza over the phone regarding the patient she agrees to continue lidocaine and amiodarone for next 48 hours. Continue to monitor. Status: Acute (3) CHF (congestive heart failure), NYHA class IV: Continue to diurese with IV Bumex Status: Acute (4) Bilateral carotid artery stenosis: Remained stable. Status: Acute (5) Diabetes: As per medicine. Status: Acute (6) DM (diabetes mellitus), secondary, with neurologic complications: As per medicine Status: Chronic (7) Acute respiratory failure with hypoxia: Continues to be on vent however has not been extubated due to nonsustained short runs of VT Status: Acute Attestations Medical Necessity Statement*: Require continuation hospitalization for about defined problems Coding Level of Care Code Established Pt Acute Ecommerce Project Manager for g Fwd Patient Type Established History Comprehensive Exam Comprehensive Medical Decision Making High Complexity Diagnoses Cardiac arrest I46.9 Recurrent ventricular tachycardia I47.2 CHF (congestive heart failure), NYHA class IV I50.9 Bilateral carotid artery stenosis I65.23 Diabetes E11.9 DM (diabetes mellitus), secondary, with neurologic complications E13.49 Acute respiratory failure with hypoxia J96.01
[2020-08-10 21:03] LABS: Glucose Point of Care 207 mg/dL (70-110)
[2020-08-11] VITALS (68 sets, daily range): BP systolic 93–164; BP diastolic 36–74; PULSE 42–86; RESP 12–40; TEMP 36.7–36.8; O2SAT 88–99
[2020-08-11] MEDS: bumetanide 0.25 mg/mL SDV 4 mL 1 MG IV ×2 (04:27→15:54)
[2020-08-11 04:36] LABS: ABG PCO2 33.1 mmHg (35-45); Arterial Blood Gas Hematocrit 34.5 % (42-52); Base Excess ABG 2.5 mmol/L (-2.0-2.0); Blood Gas Sample Site Brachial, right; Blood Gas Sample Type Arterial; Blood Gas Tidal Volume 0.48; HCO3 ABG 25.5 mmol/L (22-26); Oxygen Device VENT; PO2 ABG 70.1 mmHg (80.0-100.0)
[2020-08-11 05:06] LABS: Basophils % 0.1 %; Hematocrit 31.6 % (42.0-52.0); Hemoglobin 10.6 g/dL (11.7-16.6); Lymphocytes # 0.9 10^3/uL (0.8-4.8); Lymphocytes % 10.5 %; Mean Corpuscular HGB Conc 33.5 g/dL (30.0-36.0); Mean Corpuscular Hemoglobin 29.9 pg (28.0-34.0); Mean Corpuscular Volume 89.3 fL (80-94); Mean Platelet Volume 9.5 fL (7.4-10.4); Monocytes # 0.9 10^3/uL (0.2-0.9); Monocytes % 10.2 %; Neutrophils # 6.79 10^3/uL (1.8-7.7); Nucleated Red Blood Cells % 0 %; Platelet Count 233 10^3/cmm (130-400); Red Blood Count 3.54 10^6/uL (4.1-5.3); White Blood Count 8.6 10^3/uL (4.0-10.0)
[2020-08-11 05:18] LABS: Alanine Aminotransferase 7 U/L (0-41); Albumin Level 3.1 g/dL (3.5-5.2); Alkaline Phosphatase 54 IU/L (40-130); Aspartate Amino Transferase 16 U/L (0-40); Blood Urea Nitrogen 17 mg/dL (8-23); Calcium 7.7 mg/dL (8.5-10.5); Carbon Dioxide 26 mmol/L (22-29); Chloride 94 mmol/L (98-107); Globulin 2.7 g/dL (1.3-4.6); Glucose 150 mg/dL (65-115); Osmolality Calculated 270 mOsm/kg (285-295); Sodium 128 mmol/L (136-145); Total Bilirubin 0.5 mg/dL (0.15-1.2); Total Protein 5.8 g/dL (6.6-8.7)
[2020-08-11 05:29] LABS: NT Pro B Type Natriuretic Pept 1344 pg/mL (0-450); Procalcitonin 0.22 ng/mL (0-0.5)
[2020-08-11 05:40] LABS: C Reactive Protein 67.4 mg/L (0.0-4.9); Creatine Phosphokinase 318 U/L (39-308); Magnesium 2.4 mg/dL (1.7-2.3); Phosphorus 2.9 mg/dL (2.5-4.5)
--- NOTE | 2020-08-11 06:00 | ECG_ITS ---
[facility] Test Date: 2020-08-11 Pat Name: Phoenix Veras Department: Room: [facility] Gender: Male Information Broker: : 1935 Requested By: Oswaldo Lewis Order Number: [id number] Reza MD: Tree Hoffman M.D. Measurements Intervals [place] Rate: 56 P: 45 VA: 232 QRS: -27 QRSD: 111 T: 38 QT: 475 QTc: 460 Interpretive Statements SINUS BRADYCARDIA WITH FIRST DEGREE AV BLOCK POSSIBLE ANTERIOR MYOCARDIAL INFARCTION [30 ms Q WAVE IN V3/V4, OR R < 0.2 mV IN V4], OF INDETERMINATE AGE INTERPRETATION BASED ON A DEFAULT AGE OF 40 YEARS Compared to ECG 08/10/2020 05:18:03 First degree AV block now present Atrial fibrillation no longer present Myocardial infarct finding still present Electronically Signed On 08-11-2020 19:00:11 CDT by Tree Hoffman M.D. [id number]
[2020-08-11 06:32] LABS: CKMB 1.7 ng/mL (0-10.4)
--- NOTE | 2020-08-11 07:00 | XR_ITS ---
WS: [id number] Portable AP upright chest, 08/11/2020 Clinical Data: sob Comparison: Portable chest, 08/10/2020 Findings: The endotracheal tube, nasogastric tube and right subclavian catheter remain the same. Ther e are bilateral lower lobe opacities which have developed yesterday. There is a left pleural effusion . The heart size remains the same. Monitor leads are on the chest wall. XR/XR chest 1V portable [id number] Impression: 1. Development of bilateral lower lobe opacities since yesterday, worse on the left of the right. 2. No change in position of multiple tubes.
[2020-08-11] MEDS: piperacillin-tazobactam 3.375 GM in sodium chloride 0.9% (plus) 50 ML IV ×2 (07:56→15:54)
[2020-08-11 08:09] LABS: Glucose Point of Care 159 mg/dL (70-110)
--- NOTE | 2020-08-11 09:01 | PC.CHAP ---
Pastoral Care Encounter/Spiritual Assessment Type of Contact [] Declined culinary artist visit [] Patient/Family/Request visit [] Outpatient visit [] Follow-up visit [] Physician referral [] Code/Alert [x] Routine visit [] Staff referral [] Actively dying [] Patient sleeping [x] Family support [] [] Out of room [] Palliative care [] [] Receiving care in room [] Pre-surgical visit [] Trauma [] Long length of stay [x] ICU visit [x] Other: Relational/Emotional Strength [] Patient feels connected with others/family/visitors/staff [] Distress [] Loneliness/isolation [] Abandonment Spirituality of Patient [] Person of Barby [] Attends Mosque of their Barby [] Believes in Prayer [] Reads Bible or Mandaen materials [] There are Spiritual issues to be addressed Dog Or Animal Sitter Interventions [x] Prayer [x] Active listening [x] Non-anxious presence [x] Spiritual/emotional support [] Crisis/trauma care [] Spiritual counseling [] Bereavement support [] Provided bereavement packet [] Provided Bible/devotional materials [] Provided toy/stuffed animal, coloring book to patient or family member [] Provided Communion [] Anointing/[place] [] Salvation [x] Completed spiritual assessment [] Other: Impact on Illness or Injury [] Angry [] Fearful [] Anxious [] Often cries [] Exhaustion [] Unable to work [] Unable to attend druze [] Unable to walk/stand [] Unable to read [] Unable to drive [] Unable to eat/drink [] Unable to sleep [] Unable to be with family [] Patient intubated [] Other: Summary Time spent with patient
[2020-08-11] MEDS: aspirin 81 mg EC Tablet PO (09:24)
[2020-08-11] MEDS: amiodarone 200 mg Tablet 400 MG PO (09:24)
[2020-08-11] MEDS: clopidogrel 75 mg Tablet PO (09:25)
[2020-08-11] MEDS: metoprolol tartrate 25 mg Tablet 12.5 MG PO ×2 (09:25→11:19)
[2020-08-11] MEDS: enoxaparin 40 mg/0.4 mL Syringe SUBCUT ×2 (09:25→17:32)
[2020-08-11] MEDS: atorvastatin 40 mg Tablet PO (09:25)
[2020-08-11] MEDS: ipratropium-albuterol 3 mL Neb INHALATION ×3 (09:45→19:59)
[2020-08-11] MEDS: pantoprazole 40 mg SDV IVP (11:19)
[2020-08-11 11:27] LABS: Glucose Point of Care 158 mg/dL (70-110)
--- NOTE | 2020-08-11 14:00 | PC.NURSE ---
Noted nonsustained v tach. Pt remained with pulse and was conscious the entire time. Dr. Lewis notified. orders given to continue to closely monitor and continue with the weaning process for the ventilator.
[2020-08-11] MEDS: metoprolol tartrate 1 mg/1 mL SDV 5 mL 5 MG IV (15:47)
--- NOTE | 2020-08-11 16:32 | PM.PN ---
Subjective Subjective: Interval history: Patient was seen this morning, he is following all commands on the vent, he had one episode of nonsustained V. tach overnight, his amiodarone and lidocaine ability wean down, he is off Levophed, maintain good urine output, afebrile Patient was examined again in the afternoon, 0.5 of lidocaine drip, following all commands, doing well on CPAP mode, he had one episode of nonsustained V. tach, but overall doing well, following all commands, no episodes of agitation, no episodes of tachypnea, no episodes of desaturations, he is off of Levophed, is fairly normotensive will plan on extubating later on this afternoon Vitals/I&O/Wt Last Vital Signs Temp 98.0 F 08/11/20 12:00 Pulse 64 08/11/20 16:00 Resp 22 H 08/11/20 16:00 BP 130/56 08/11/20 16:00 Pulse Ox 98 08/11/20 16:00 08/11/20 08/11/20 08/11/20 06:59 14:59 22:59 Intake Total 130.375 / 1005.742 533.423 / 533.423 Output Total 500 / 1550 Balance -369.625 / -544.258 533.423 / 533.423 Physical Exam Narrative: EXAM NARRATIVE: Intubated, minimal sedation, following all commands squeezing my fingers, wiggling his toes, pupils equal round reactive to light Const: COMMON NORMALS: no acute distress and patient oriented x3 Chest: COMMONS NORMALS: normal inspection of the chest OTHER: right central line in place Resp: COMMON NORMALS: normal respiratory effort, No retractions, No use of accessory muscles and clear to auscultation bilaterally AUSCULTATION: clear to auscultation bilaterally Cardio: COMMON NORMALS: regular rate, regular rhythm, S1 normal heart sound present, S2 normal heart sound present, No gallops present (Cardio), No clicks present (Cardio) and No murmurs present (Cardio) RATE: regular rate RHYTHM: regular rhythm HEART SOUNDS: S1 normal heart sound present and S2 normal heart sound present GI: COMMON NORMALS: Normal to inspection, nondistended, normoactive bowel sounds present and Soft to palpation PALPATION: Yes Soft to palpation : OTHER: left femoral sheath site is clean and dry Extremity: COMMON NORMALS: no pedal edema Neuro: COMMON NORMALS: patient oriented x3 Urinary Catheter Management^: Rankin: Cath Placed During This Visit: yes Reason for Continuing Indwelling Catheter: Accurate Measurement of Urinary Output in Critically Ill Patients Urinary Catheter Date of Insertion: 08/09/20 Urinary Catheter Time of Insertion: 07:45 Data : 08/11/20 04:11 08/11/20 04:11 Micro: Microbiology 08/09/20 03:45 Gram Stain - Final Sputum - Endotracheal Tube Aspirate Sputum Culture - Preliminary 08/09/20 Unknown MRSA Culture - Final Nose A&P Assessment and plan (1) Acute respiratory failure with hypoxia: -Secondary to pulmonary edema, ischemic cardiomyopathy, CHF, NSTEMI, ventricular [id number] tachycardia -Also concerns for aspiration event -s/p MARY to left main -ct angiogram of the chest: 1. No evidence of pulmonary embolus. 2. Endotracheal tube with tip above the thoracic inlet. This could be advanced. 3. Small right greater than left pleural effusions. Compressive atelectasis in the lung bases. 4. Slight hazy infiltrates or atelectasis in both upper lobes. -Baseline troponin 31, 120-minute 75, delta 44, BNP 1061 Plan: -Currently in ICU -inutubated, sedated, on versed and fentanyl for sedation, minimize PEEP to minimize FiO2, Thuan scale -Daily spontaneous breathing trials, plan on extubation later on this afternoon -Has a right subclavian line in place -Left femoral/art line removed -Received aspirin, Plavix, statin -On Zosyn for aspiration pneumonia coverage -Wean lidoaciane drip, amiodarone drip, continue mixeletene OJ, continue metoprolol, Lopressor as needed -Hold Bumex as patient's pH 7.5, serum sodium 128, alkalotic, looks euvolemic -Metoprolol 25mg BID -L off Levophed -on low dose sliding scale -cardiac echo ordered: EJF 45% -follows commands on the ventilator, nods his head, squeezes my finger, pupils equal round reactive to light -Full code -protonix for GI prophylaxis -lovenox for DVT ppx -Dr. David cardiology for consult -status is stable, prognosis is gaurded Status: Acute (2) Wide-complex tachycardia: -has nonsutained wide complex tachycardia after stent placment -likely reperfusion arrhtymias -cardiology on consult -Weaning lidocaine and amiodarone drip and continue mixeletine, continue Toprol 25 twice daily, Lopressor as needed Status: Acute (3) NSTEMI (non-ST elevated myocardial infarction): Status: Acute (4) Type 2 diabetes mellitus with hyperglycemia: -insulin sliding scale Status: Chronic (5) Benign essential hypertension: Status: Chronic (6) Atherosclerotic heart disease of [place] coronary artery without angina pectoris: Status: Chronic (7) Bilateral carotid artery stenosis: Status: Acute (8) History of ischemic cardiomyopathy: Status: Acute (9) Mixed hyperlipidemia: Status: Chronic Attestations Medical Necessity Statement*: Patient course hospitalization, inpatient, acute respiratory failure, NSTEMI, LAD stent, reperfusion arrhythmias Coding Level of Care Code Acute Screen Printing Cloth Spreader for Sami García Diagnoses Acute respiratory failure with hypoxia J96.01 Wide-complex tachycardia I47.2 NSTEMI (non-ST elevated myocardial infarction) I21.4 Type 2 diabetes mellitus with hyperglycemia E11.65 Benign essential hypertension I10 Atherosclerotic heart disease of [place] coronary artery without angina pectoris I25.10 Bilateral carotid artery stenosis I65.23 History of ischemic cardiomyopathy Z86.79 Mixed hyperlipidemia E78.2
--- NOTE | 2020-08-11 16:33 | PC.NURSE ---
pt extubated to 4l NC via RT. OG tube removed as well. will closely monitor.
--- NOTE | 2020-08-11 16:58 | PC.NURSE ---
fentanyl and versed gtts wasted with Yamilex Guzman RN.
[2020-08-11] MEDS: MEXILETINE 150 MG 1 EACH NG-TUBE (17:41)
[2020-08-11 17:48] LABS: Glucose Point of Care 142 mg/dL (70-110)
--- NOTE | 2020-08-11 18:30 | PC.NURSE ---
Increased work of breathing. Pt noted to have increased work of breathing with the continued intermittent nonsustained V tach. Dr. Lewis at bedside. Pt placed on heated high flow at 70%. Will closely monitor. Orders also given to increase lidocaine gtt to 2 mg/hr and restart amiodarone at 1 mg/min.
[2020-08-11 18:31] LABS: ABG PCO2 35.1 mmHg (35-45); ABG PH Result 7.48 (7.35-7.45); Alveolar-Arterial Oxygen Gradi 7.4 mmHg (5-10); Arterial Blood Gas Hematocrit 37.7 % (42-52); Base Excess ABG 2.5 mmol/L (-2.0-2.0); Blood Gas Allen Test Pos; Blood Gas Operator Identificat CAAK; Blood Gas Sample Site Brachial, left; Blood Gas Sample Type Arterial; Carboxyhemoglobin 0.2 %THgb (0.4-20.1); HCO3 ABG 25.9 mmol/L (22-26); HGB O2 Sat 83.1 % (95-100); Ionized Calcium Level - ABG 1.1 mmol/L (1.1-1.4); Methemoglobin 1.1 % (0.4-1.5); Oxygen Device NC; Oxygen Saturation ABG 84.2; PO2 ABG 49.4 mmHg (80.0-100.0); Potassium Level - ABG 3.7 mmol/L (3.5-5.0); Total Hemoglobin 12.3 g/dL (14-18)
--- NOTE | 2020-08-11 19:00 | PC.NURSE ---
Addendum entered by Saige Schulte RN 08/11/20 19:35: In am patient with ET tube noted and SR/SB noted. Plan of care made with Dr. Lewis to wean to extubate in the afternoon if patient continues to not have V tach arrhythmias. First noted nonsustained Vtach run noted approx at 1400. Dr. Lewis notified. Plan to continue wean to extubate. Pt had continued intermittent nonsustained V tach with a pulse. Pt extubated to 4 L nc at 1633. Initially patient tolerated well. Oxygen was increased to 5 L nc. Increased work of breathing noted at 1745. Dr. Lewis at bedside. Orders given to increase Lidocaine back to 2 mg/min and restarted amiodarone gtt at 1 mg/min. Pt placed on heated high flow with continued intermittent nonsustained vtach with a pulse. Pt noted to have continued increase work of breathing and Dr. Lewis notified and on his way to the unit. Original Note: Shift Review
[2020-08-11] MEDS: succinylcholine 20 mg/mL SDV 10mL 125 MG IVP (19:13)
--- NOTE | 2020-08-11 19:15 | XRR_ITS ---
PROCEDURE INFORMATION: Exam: XR Chest Exam date and time: 08/11/2020 7:22 PM Age: 84 years old Clinical indication: Device placement; Ett placement (vent status); Additional info: Et tube/og tube placement TECHNIQUE: Imaging protocol: XR of the chest. Views: 1 view. COMPARISON: CR XR chest 1V portable [id number] 08/11/2020 5:15 AM FINDINGS: Tubes, catheters and devices: Mid trachea positioning of endotracheal tube. NG tube in the stomach. Right chest central venous catheter terminates mid SVC. Lungs: Hazy ground-glass lower lung opacities are similar to prior imaging. Increased perihilar interstitial opacities similar to prior. Pleural spaces: Small volume bilateral pleural effusions greater on left than right. No pneumothorax. Heart/Mediastinum: Unremarkable. No cardiomegaly. Vasculature: Diffuse atherosclerosis of aorta. Bones/joints: Unremarkable. XR/XR chest 1V portable [id number] IMPRESSION: No significant changes in exam of chest from comparison imaging.
[2020-08-11 20:02] LABS: Alanine Aminotransferase 8 U/L (0-41); Albumin Level 3.5 g/dL (3.5-5.2); Alkaline Phosphatase 62 IU/L (40-130); Anion Gap 15.9 (5-19); Aspartate Amino Transferase 16 U/L (0-40); Blood Urea Nitrogen 17 mg/dL (8-23); Carbon Dioxide 25 mmol/L (22-29); Chloride 91 mmol/L (98-107); Globulin 3.2 g/dL (1.3-4.6); Glucose 190 mg/dL (65-115); Magnesium 2.1 mg/dL (1.7-2.3); Osmolality Calculated 273 mOsm/kg (285-295); Potassium 3.9 mmol/L (3.5-5.1); Sodium 128 mmol/L (136-145); Total Bilirubin 0.6 mg/dL (0.15-1.2); Total Protein 6.7 g/dL (6.6-8.7)
[2020-08-11 20:36] LABS: INR 1.18 (0.8-1.2)
[2020-08-11] MEDS: metoprolol tartrate 25 mg Tablet PO (20:47)
--- NOTE | 2020-08-11 22:28 | P.PN_ITS ---
Subjective Subjective: Interval history: Patient was extubated and later has to be reintubated due to hemodynamic instability for recurrent sustained and nonsustained ventricular tachycardia. He was started back on IV amiodarone and lidocaine. Vitals/I&O/Wt Last Vital Signs Temp 98.0 F 08/11/20 12:00 Pulse 66 08/11/20 20:15 Resp 14 08/11/20 22:17 BP 164/66 08/11/20 18:00 Pulse Ox 99 08/11/20 22:17 08/11/20 08/11/20 08/11/20 06:59 14:59 22:59 Intake Total 130.375 / 1005.742 533.423 / 533.423 89.25 / 622.673 Output Total 500 / 1550 700 / 700 Balance -369.625 / -544.258 533.423 / 533.423 -610.75 / -77.327 Physical Exam Narrative: EXAM NARRATIVE: GENERAL: Patient is intubated and sedated. NECK: No jugular vein distension. HEENT: No cyanosis. No icterus. No pallor. HEART: Regular S1 and S2. No murmur, rub or gallop. LUNGS: Clear to auscultate bilaterally. ABDOMEN: Soft, nontender and nondistended. Positive bowel sounds. No guarding, rebound or tenderness. CENTRAL NERVOUS SYSTEM: Grossly nonfocal. EXTREMITIES: Lower extremities without edema bilaterally. Patient dopplerable bilateral pulses bith legs looks fine in color and temp Urinary Catheter Management^: Rankin: Cath Placed During This Visit: yes Reason for Continuing Indwelling Catheter: Accurate Measurement of Urinary Output in Critically Ill Patients Urinary Catheter Date of Insertion: 08/09/20 Urinary Catheter Time of Insertion: 07:45 Data : 08/11/20 04:11 08/11/20 19:18 Micro: Microbiology 08/09/20 03:45 Gram Stain - Final Sputum - Endotracheal Tube Aspirate Sputum Culture - Preliminary A&P Assessment and plan (1) Recurrent ventricular tachycardia: Despite of revascularization, diuresis and optimization of medicine with 3 antiarrhythmics including amiodarone, lidocaine and mexiletine patient continued to exhibit sustained and nonsustained ventricular tachycardia. Possible scar VT may require further assessment by EP service for possible VT ablation/ICD device. Since we do not have EP service here we will transfer patient to [place] for further treatment. I have detailed discussion with the family member including his son daughter and grand children. They are all in agreement. I have also visited patient earlier a day ago and he would like to be everything done. Status: Acute (2) CHF (congestive heart failure), NYHA class IV: Continue diuresis with IV Bumex. Appear to be compensated now. Continue titration of beta-fermin add MICHAEL inhibitor once blood pressure more stable Status: Acute Qualifiers: Congestive heart failure type: systolic Congestive heart failure chronicity: acute on chronic Qualified Code(s): I50.23 - Acute on chronic systo lic (congestive) heart failure (3) Bilateral carotid artery stenosis: Appear to be stable continue statin aspirin Status: Acute (4) Diabetes: As per medicine. Status: Acute (5) DM (diabetes mellitus), secondary, with neurologic complications: As per medicine Status: Chronic (6) Acute respiratory failure with hypoxia: Currently supported by ventilation Status: Acute Attestations Medical Necessity Statement*: Patient require transfer to facility where he may can be treated by electrophysiology service. He will be transferred to [facility]. Coding Level of Care Code Acute Leasing Associate for Sami García Diagnoses Recurrent ventricular tachycardia I47.2 CHF (congestive heart failure), NYHA class IV I50.23 Congestive heart failure type: systolic Congestive heart failure chronicity: acute on chronic Bilateral carotid artery stenosis I65.23 Diabetes E11.9 DM (diabetes mellitus), secondary, with neurologic complications E13.49 Acute respiratory failure with hypoxia J96.01
--- NOTE | 2020-08-11 22:47 | PC.NURSE ---
1908 Dr. Lewis notified of sustained VTACH prolong runs. Pt c/o SOB diaphoretic. DIscussed need for intubation with patient. Pt agreed to Intubation. ER Physician notified. 1912 Gave Etomidate and Succinylcholine see MAY 1913 Dr. Escobedo at bedside Intubated with 8.0 ETT 24 @ lip 1951 Dr. Santacruz updated on declining condition notifed of intubation and VTach 2214 Dr. Santacruz present updated family. DIscussion of possible transfer to higher level care for ablation or AICD procedure. Family agrees with transfer plans. 2129 Report called to [facility] in [place] Nicky Vera, appeals writer ICU Bed 11. 2220 HR decreased 40's notified Dr. Santacruz by phone decreased Amiodarone 0.5mg and Lidocaine 1mg gtt 2230 Pt taken by [facility] to [facility] for transfer 2315 Dr. Santacruz notifed Pt has left facility
--- NOTE | 2020-08-11 23:11 | ED_ITS ---
HPI - Chest Pain General: Chief Complaint: Chest Pain Stated Complaint: CP History of Present Illness: Pain location: left chest PFSH ED PFSH: Medical History Atherosclerotic heart disease of [place] coronary artery without angina pectoris Benign essential hypertension Bilateral carotid artery stenosis CVA (cerebral vascular accident) Enrolled in chronic care management History of ischemic cardiomyopathy Mixed hyperlipidemia Osteoarthritis Type 2 diabetes mellitus with hyperglycemia Surgical History H/O heart artery stent Family History Son CAD (coronary artery disease) Diabetes Father CAD (coronary artery disease) Sister Cancer Diabetes Brother Diabetes Family/Other Diabetes Other Heart disease Hypertension Denies family history of Clotting disorder Dementia Chronic kidney disease (CKD) Suicide Anesthesia complication Bleeding disorder Lung disease Stroke Social History Smoking and tobacco status: former smoker Smoking risk assessment/counseling performed?: No Alcohol intake: never Desire information about alcohol rehabilitation?: No Counseling given: No Desire information about substance/drug rehabilitation?: No Counseling given: No Caregiver/support person: No Lives independently: Yes Housing: House Marital status: / Number of children: 6 Pets and animals: Yes History of recent travel: No Current gender identity: Male Procedures Intubation Time out performed: Yes sedative: Etomidate Mg Given: 20 paralytic: Succinylcholine Mg Given: 125 Laryngoscope: Patricia ET Tube Size: 8 ET Tube Uncuffed: Yes Tube Secured Depth (cm): 26 Tube Secured Location: lips Tube Placement Confirmation: visualized tube passing through cords, equal breath sounds bilaterally, no breath sounds over epigastrium and confirmation by capnometry Patient Tolerated Procedure: well Intubation Complications: none Course Vital Signs: Vital signs: Vital Signs Temperature 98.0 F 08/11/20 12:00 Pulse Rate 66 08/11/20 20:15 Respiratory Rate 14 08/11/20 22:17 Blood Pressure 164/66 08/11/20 18:00 Pulse Oximetry 99 08/11/20 22:17 MDM - Chest Pain Lab Data: Labs: Lab Results 08/09/20 08/09/20 08/09/20 Range/Units 07:29 07:30 07:30 WBC 20.0 H (4.0-10.0) 10^3/ uL RBC 4.73 (4.1-5.3) 10^6/u L Hgb 14.1 (11.7-16.6) g/dL Hct 43.1 (42.0-52.0) % MCV 91.1 (80-94) fL MCH 29.8 (28.0-34.0) pg MCHC 32.7 (30.0-36.0) g/dL RDW 13.7 (12.1-15.1) % Plt Count 393 (130-400) 10^3/c mm MPV 9.4 (7.4-10.4) fL Neut % (Auto) 62.5 % Lymph % (Auto) 28.3 % [place] % (Auto) 7.3 % Eos % (Auto) 1.2 % Baso % (Auto) 0.3 % Neut # (Auto) 12.50 H (1.8-7.7) 10^3/u L Lymph # (Auto) 5.7 H (0.8-4.8) 10^3/u L [place] # (Auto) 1.5 H (0.2-0.9) 10^3/u L Eos # (Auto) 0.2 (0.0-0.8) 10^3/u L Baso # (Auto) 0.1 (0.0-0.1) 10^3/u L Nucleated RBC % (a uto) 0 % Nucleated RBCs # 0.0 /100WBC PT (12.1-14.9) SECO NDS INR (0.8-1.2) APTT (23.9-36.7) SECO NDS D-Dimer (0-0.59) ug/mIFE U Specimen Type Arterial Sample Site Brachial, left ABG pH 7.21 L (7.35-7.45) ABG pCO2 58.3 H (35-45) mmHg ABG pO2 148.0 H (80.0-100.0) mmH g ABG HCO3 23.3 (22-26) mmol/L ABG O2 Saturation 98.4 ABG Base Excess -5.4 L (-2.0-2.0) mmol/ L Brandon Test N/a A-a O2 Gradient 64.7 H (5-10) mmHg Hematocrit 44.1 (42-52) % Hgb O2 Saturation 96.7 (95-100) % Carboxyhemoglobin 0.6 (0.4-20.1) %THgb Methemoglobin 1.1 (0.4-1.5) % Total Hemoglobin 14.4 (14-18) g/dL Sodium 133.0 133 L (131-143) mmol/L Potassium 4.2 4.5 (3.5-5.0) mmol/L Glucose 285.0 H 254 H (70-115) mg/dL Ionized Calcium 1.2 (1.1-1.4) mmol/L O2 Delivery Device Nrb O2 Liters/Min 15.0 % FiO2 100.0 % Chief Operator Synthesis ID Amh Chloride 96 L (98-107) mmol/L Carbon Dioxide 21 L (22-29) mmol/L Anion Gap 20.5 H (5-19) BUN 13 (8-23) mg/dL Creatinine 0.7 (0.7-1.2) mg/dL GFR Calculation Not Reportable Calculated Osmolal ity 285 (285-295) mOsm/k g Lactate (0.5-2.2) mmol/L Calcium 9.0 (8.5-10.5) mg/dL Magnesium (1.7-2.3) mg/dL Total Bilirubin 0.5 (0.15-1.2) mg/dL AST 17 (0-40) U/L ALT 10 (0-41) U/L Alkaline Phosphata se 72 (40-130) IU/L Troponin T Baselin e (0-15) ng/L C-Reactive Protein (0.0-4.9) mg/L NT-Pro-B Natriuret Pep (0-450) pg/mL Total Protein 7.2 (6.6-8.7) g/dL Albumin 4.0 (3.5-5.2) g/dL Globulin 3.2 (1.3-4.6) g/dL Procalcitonin (0-0.5) ng/mL Serum Ketones (Negative) 08/09/20 08/09/20 08/09/20 Range/Units 07:30 07:30 07:30 WBC (4.0-10.0) 10^3/ uL RBC (4.1-5.3) 10^6/u L Hgb (11.7-16.6) g/dL Hct (42.0-52.0) % MCV (80-94) fL MCH (28.0-34.0) pg MCHC (30.0-36.0) g/dL RDW (12.1-15.1) % Plt Count (130-400) 10^3/c mm MPV (7.4-10.4) fL Neut % (Auto) % Lymph % (Auto) % [place] % (Auto) % Eos % (Auto) % Baso % (Auto) % Neut # (Auto) (1.8-7.7) 10^3/u L Lymph # (Auto) (0.8-4.8) 10^3/u L [place] # (Auto) (0.2-0.9) 10^3/u L Eos # (Auto) (0.0-0.8) 10^3/u L Baso # (Auto) (0.0-0.1) 10^3/u L Nucleated RBC % (a uto) % Nucleated RBCs # /100WBC PT 14.10 (12.1-14.9) SECO NDS INR 1.06 (0.8-1.2) APTT 30.3 (23.9-36.7) SECO NDS D-Dimer 1.26 H (0-0.59) ug/mIFE U Specimen Type Sample Site ABG pH (7.35-7.45) ABG pCO2 (35-45) mmHg ABG pO2 (80.0-100.0) mmH g ABG HCO3 (22-26) mmol/L ABG O2 Saturation ABG Base Excess (-2.0-2.0) mmol/ L Brandon Test A-a O2 Gradient (5-10) mmHg Hematocrit (42-52) % Hgb O2 Saturation (95-100) % Carboxyhemoglobin (0.4-20.1) %THgb Methemoglobin (0.4-1.5) % Total Hemoglobin (14-18) g/dL Sodium (131-143) mmol/L Potassium (3.5-5.0) mmol/L Glucose (70-115) mg/dL Ionized Calcium (1.1-1.4) mmol/L O2 Delivery Device O2 Liters/Min % FiO2 % Chief Operator Synthesis ID Chloride (98-107) mmol/L Carbon Dioxide (22-29) mmol/L Anion Gap (5-19) BUN (8-23) mg/dL Creatinine (0.7-1.2) mg/dL GFR Calculation Calculated Osmolal ity (285-295) mOsm/k g Lactate (0.5-2.2) mmol/L Calcium (8.5-10.5) mg/dL Magnesium (1.7-2.3) mg/dL Total Bilirubin (0.15-1.2) mg/dL AST (0-40) U/L ALT (0-41) U/L Alkaline Phosphata se (40-130) IU/L Troponin T Baselin e 31 H (0-15) ng/L C-Reactive Protein (0.0-4.9) mg/L NT-Pro-B Natriuret Pep (0-450) pg/mL Total Protein (6.6-8.7) g/dL Albumin (3.5-5.2) g/dL Globulin (1.3-4.6) g/dL Procalcitonin (0-0.5) ng/mL Serum Ketones (Negative) 08/09/20 08/09/20 08/09/20 Range/Units 07:30 07:46 07:46 WBC (4.0-10.0) 10^3/ uL RBC (4.1-5.3) 10^6/u L Hgb (11.7-16.6) g/dL Hct (42.0-52.0) % MCV (80-94) fL MCH (28.0-34.0) pg MCHC (30.0-36.0) g/dL RDW (12.1-15.1) % Plt Count (130-400) 10^3/c mm MPV (7.4-10.4) fL Neut % (Auto) % Lymph % (Auto) % [place] % (Auto) % Eos % (Auto) % Baso % (Auto) % Neut # (Auto) (1.8-7.7) 10^3/u L Lymph # (Auto) (0.8-4.8) 10^3/u L [place] # (Auto) (0.2-0.9) 10^3/u L Eos # (Auto) (0.0-0.8) 10^3/u L Baso # (Auto) (0.0-0.1) 10^3/u L Nucleated RBC % (a uto) % Nucleated RBCs # /100WBC PT (12.1-14.9) SECO NDS INR (0.8-1.2) APTT (23.9-36.7) SECO NDS D-Dimer (0-0.59) ug/mIFE U Specimen Type Sample Site ABG pH (7.35-7.45) ABG pCO2 (35-45) mmHg ABG pO2 (80.0-100.0) mmH g ABG HCO3 (22-26) mmol/L ABG O2 Saturation ABG Base Excess (-2.0-2.0) mmol/ L Brandon Test A-a O2 Gradient (5-10) mmHg Hematocrit (42-52) % Hgb O2 Saturation (95-100) % Carboxyhemoglobin (0.4-20.1) %THgb Methemoglobin (0.4-1.5) % Total Hemoglobin (14-18) g/dL Sodium (131-143) mmol/L Potassium (3.5-5.0) mmol/L Glucose (70-115) mg/dL Ionized Calcium (1.1-1.4) mmol/L O2 Delivery Device O2 Liters/Min % FiO2 % Chief Operator Synthesis ID Chloride (98-107) mmol/L Carbon Dioxide (22-29) mmol/L Anion Gap (5-19) BUN (8-23) mg/dL Creatinine (0.7-1.2) mg/dL GFR Calculation Calculated Osmolal ity (285-295) mOsm/k g Lactate 3.5 H (0.5-2.2) mmol/L Calcium (8.5-10.5) mg/dL Magnesium (1.7-2.3) mg/dL Total Bilirubin (0.15-1.2) mg/dL AST (0-40) U/L ALT (0-41) U/L Alkaline Phosphata se (40-130) IU/L Troponin T Baselin e (0-15) ng/L C-Reactive Protein 15.1 H (0.0-4.9) mg/L NT-Pro-B Natriuret Pep 1061 H (0-450) pg/mL Total Protein (6.6-8.7) g/dL Albumin (3.5-5.2) g/dL Globulin (1.3-4.6) g/dL Procalcitonin 0.04 (0-0.5) ng/mL Serum Ketones Negative (Negative) 08/09/20 Range/Units 07:46 WBC (4.0-10.0) 10^3/ uL RBC (4.1-5.3) 10^6/u L Hgb (11.7-16.6) g/dL Hct (42.0-52.0) % MCV (80-94) fL MCH (28.0-34.0) pg MCHC (30.0-36.0) g/dL RDW (12.1-15.1) % Plt Count (130-400) 10^3/c mm MPV (7.4-10.4) fL Neut % (Auto) % Lymph % (Auto) % [place] % (Auto) % Eos % (Auto) % Baso % (Auto) % Neut # (Auto) (1.8-7.7) 10^3/u L Lymph # (Auto) (0.8-4.8) 10^3/u L [place] # (Auto) (0.2-0.9) 10^3/u L Eos # (Auto) (0.0-0.8) 10^3/u L Baso # (Auto) (0.0-0.1) 10^3/u L Nucleated RBC % (a uto) % Nucleated RBCs # /100WBC PT (12.1-14.9) SECO NDS INR (0.8-1.2) APTT (23.9-36.7) SECO NDS D-Dimer (0-0.59) ug/mIFE U Specimen Type Sample Site ABG pH (7.35-7.45) ABG pCO2 (35-45) mmHg ABG pO2 (80.0-100.0) mmH g ABG HCO3 (22-26) mmol/L ABG O2 Saturation ABG Base Excess (-2.0-2.0) mmol/ L Brandon Test A-a O2 Gradient (5-10) mmHg Hematocrit (42-52) % Hgb O2 Saturation (95-100) % Carboxyhemoglobin (0.4-20.1) %THgb Methemoglobin (0.4-1.5) % Total Hemoglobin (14-18) g/dL Sodium (131-143) mmol/L Potassium (3.5-5.0) mmol/L Glucose (70-115) mg/dL Ionized Calcium (1.1-1.4) mmol/L O2 Delivery Device O2 Liters/Min % FiO2 % Chief Operator Synthesis ID Chloride (98-107) mmol/L Carbon Dioxide (22-29) mmol/L Anion Gap (5-19) BUN (8-23) mg/dL Creatinine (0.7-1.2) mg/dL GFR Calculation Calculated Osmolal ity (285-295) mOsm/k g Lactate (0.5-2.2) mmol/L Calcium (8.5-10.5) mg/dL Magnesium 2.1 (1.7-2.3) mg/dL Total Bilirubin (0.15-1.2) mg/dL AST (0-40) U/L ALT (0-41) U/L Alkaline Phosphata se (40-130) IU/L Troponin T Baselin e (0-15) ng/L C-Reactive Protein (0.0-4.9) mg/L NT-Pro-B Natriuret Pep (0-450) pg/mL Total Protein (6.6-8.7) g/dL Albumin (3.5-5.2) g/dL Globulin (1.3-4.6) g/dL Procalcitonin (0-0.5) ng/mL Serum Ketones (Negative) Discharge Plan Discharge Patient Disposition: Admitted As Inpatient Admit Provider: Oswaldo Lewis Clinical Impression: ST elevation myocardial infarction (STEMI), Wide-complex tachycardia, DM (diabetes mellitus), secondary, with neurologic complications, History of ischemic cardiomyopathy, Type 2 diabetes mellitus with hyperglycemia, Atherosclerotic heart disease of [place] coronary artery without angina pectoris Condition: Stable Coding Level of Care Code ED Director Of Planning for Jog Raquel
--- NOTE | 2020-08-16 10:01 | PC.SOCIAL ---
Notified 08/15/20 critical result on sputum culture. Notified Dr Lewis and he indicates patient was transferred but heard patient at location of transfer [facility]. confirmed by local obituary notice. No further action indicated.
--- NOTE | 2020-08-23 16:05 | PM.TDS ---
Transfer Summary Providers Date of Admission: 08/09/20 08:24 Date of Discharge: 08/23/20 Attending Provider at Admission: Oswaldo Lewis MD Attending Provider at Transfer: Oswaldo Lewis MD Primary Care Provider: BARAK Mcgregor Anticipated Date of Transfer: Anticipated date of transfer: 08/23/20 Receiving Facility & Provider: Receiving Provider: [] Receiving facility: [] Diagnoses at Discharge Discharge Diagnosis (1) Recurrent ventricular tachycardia: Status: Acute (2) CHF (congestive heart failure), NYHA class IV: Status: Acute Qualifiers: Congestive heart failure type: systolic Congestive heart failure chronicity: acute on chronic Qualified Code(s): I50.23 - Acute on chronic systolic (congestive) heart failure (3) Bilateral carotid artery stenosis: Status: Acute (4) Diabetes: Status: Acute (5) DM (diabetes mellitus), secondary, with neurologic complications: Status: Chronic (6) Acute respiratory failure with hypoxia: Status: Acute Reason for Visit Reason for Visit: CP Hospital Course Hospital Course [place] Veras is a 84 year old male with a past medical history of CAD status post stenting x1 over 20 years ago, history of ischemic cardiomyopathy, right-sided CVA, COPD, quit smoking more than 20 years ago, history of type 2 diabetes mellitus, hypertension, hyperlipidemia, history of bilateral carotid artery stenosis, who presents to [facility] due to complaints of shortness of breath and chest pain n the emergency room patient was found to have acute hypoxic respiratory failure with concerns for fluid overload was given 60 mg of Lasix, placed on BiPAP, his initial troponin was elevated, his EKG showed ST-T wave changes, cardiology was consulted, advised no acute intervention for this time, who recommended ICU admission for diuresis and monitoring. Patient was placed on a nitro drip, but his blood pressures did drop into the systolic 90s, so he was turned off. He was given aspirin, Plavix, heparin. Initially there was a STEMI alert that was called due to EKG changes, ST changes, however Dr. Michelle advised that there was no acute intervention, symptoms were likely from heart failure, advised of continued diuresis and I see admission. I have also had gone down and see the patient, he was alert oriented x3, answering all questions appropriately, breathing better, felt better, no active chest pain. CAROLE HAMEED was called at roughly 9 AM, no loss of pulse, patient was found to have V. fib, received 1 shock, went back into sinus tachycardia, alert oriented x3, doing well on BiPAP, complaining of chest pain, his EKG showed nonspecific ST-T wave changes, no significant ST elevations, patient had another episode of V. fib again was shocked, went back into sinus tachycardia, again alert oriented x3, saturating high 90s on BiPAP, his ABGs before CODE BLUE pH 7.37, PCO2 39.8, PO2 107 on 50% FiO2 BiPAP. EKG again showed no acute ST-T wave changes, Dr. David came and also saw the patient, advised that there is no acute coronary intervention required, advised to continue diuresis, ICU level monitoring, as patient remained on BiPAP, there was concern for recurrent V. fib episodes in shocking, decision was made to intubate the patient to protect his airway. Patient was intubated by ER physician, placed on the vent, sedation, central line placed, placed on amiodarone drip, heparin drip, sedation, and transferred to the ICU. Patient was seen in ICU, currently on Versed drip, fentanyl drip, amiodarone, heparin drip, Levophed, dopamine. Nurses are currently weaning off Levophed and dopamine, Versed will be weaned off and he will be placed on propofol drip. Currently normal sinus rhythm. At 1234 patient developed wide-complex tachycardia, he had a pulse, blood pressures were 100s over 60s, he received a shock, 150 J, return to sinus tachycardia, he continued to have episodes of sustained wide-complex tachycardia, no loss of pulse, blood pressures were normotensive, his Levophed was increased to 20, he required a total of 6 shocks, up to 200 J, was placed on a lidocaine drip, propofol drip, received 4 g of magnesium, 5 mg of metoprolol, at roughly 1248, he remained in sinus tachycardia, Dr. David was present, he took the patient to cardiac catheterization lab, his mid LAD was stented He was brought to the the ICU, currently on lidocaine drip, amiodarone drip, fentanyl, propofol for sedation, on the vent, diuretics on hold, getting Zosyn for aspiration coverage, has a right central line in place, left femoral sheath.art in place At roughly 4:50 PM, patient had episodes of nonsustained wide-complex tachycardia, lasting a few seconds, likely reperfusion arrhythmias, he is on 1 of amiodarone, 1 of lidocaine, nonsustained, patient was monitored, his episodes of wide-complex tachycardia became less frequent, mexiletine was added, he was kept intubated, received intermittent diuresis. On 08/09/2020, patient had one episode of wide-complex tachycardia, early in the morning, no episodes since then, did well with his weaning trials, followed all commands. Patient was seen the afternoon of 08/09/2020, after his extubation, he follows all commands, alert oriented x3, he is actually repositioning his bed, maintaining his airway, he is on 6 L, however he continues to have episodes of nonsustained V. tach, lasting 15 seconds, looks at wide-complex tachycardia, self abates, I advised the nurse to increase the lidocaine to 2 I discussed the case with Dr. David, he recommended to add amiodarone 1 mg, continue mexiletine, continue metoprolol Patient was reexamined, he continues to have episodes of nonsustained V. tach, ABG showed pH of 7.48, PO2 is 49.4, bicarb 25.9, PO2 84.2. Patient is alert oriented x3, I placed the patient on high flow, he is lying to the side, alert oriented x3 However patient continued to have episodes of nonsustained V. tach, wide-complex tachycardia, I do not believe that hypoxia or underlying lung disease is a significant contributing factor to his nonsustained V. tach, nor do I think currently he is fluid overloaded as ABG shows he is alkalotic, he is -2.6 L, no significant crackles on exam, no pitting edema however I will continue diuresis for now, no significant evidence of pneumonia on the chest x-ray, no leukocytosis, no fevers. For all his nonsustained V. tach episodes he did not lose any consciousness, no blood pressure falls, no loss of consciousness, no loss of pulse I was advised by nurses at roughly 7:05 PM that he he had an episode of sustained V. tach lasting over a minute, he became confused a bit lethargic after, he was placed on BiPAP, arrived in ICU, patient was alert oriented x3, saturating in the high 90s on BiPAP, no episodes of nonsustained V. tach, I discussed my concerns with the patient, I feel that he continues to have episodes of nonsustained V. tach, etiology could be multifactorial, but I do feel that his due to underlying reperfusion arrhythmias, I will recheck his blood work, check his CMP, check his mag levels, continue to diurese him, but I feel that if he continues to have these episodes of bradyarrhythmias I might have to shock him again, and performing this while he is alert and awake will cause significant pain and suffering. I would prefer to protect his airway, sedate him, and monitor him for the next 24 hours, and if we need to shock him that certainly can be done while he is sedated in a safe manner into minimize his pain and suffering. After discussion the risks and benefits of intubation, mechanical ventilation sedation, he voiced understanding, all questions answered, he agreed to proceed with intubation mechanical ventilation, he is a full code, nurses were present at bedside to confirm this, including nurse Saige.-Called the emergency room, Dr. Jones was kind enough to come by and intubate the patient Thus patient was reintubated for: Nonsustained V. tach, concerns for repeat shocking, concerns for repeat shocking while he is not sedated alert and awake, concerns for loss of airway during nonsustained V. tach. Was kept on amiodarone, lidocaine, after discussion with cardiology recommendation was made to transfer to higher level center for cardiac ablation. Patient was transferred to [facility], due to persistent nonsustained V. tach, requiring cardiac ablation. Mining Support Worker recommended to continue lidocaine, amiodarone stop mexiletine Acute respiratory failure with hypoxia: -Secondary to pulmonary edema, ischemic cardiomyopathy, CHF, NSTEMI, ventricular flnonskzeu-cifk-drbmwfu tachycardia -Also concerns for aspiration event -s/p MARY to left main -ct angiogram of the chest: 1. No evidence of pulmonary embolus. 2. Endotracheal tube with tip above the thoracic inlet. This could be advanced. 3. Small right greater than left pleural effusions. Compressive atelectasis in the lung bases. 4. Slight hazy infiltrates or atelectasis in both upper lobes. -Baseline troponin 31, 120-minute 75, delta 44, BNP 1061 -inutubated, sedated, on versed and fentanyl for sedation, minimize PEEP to minimize FiO2, [place] scale -Has a right subclavian line in place -Left femoral/art line removed -Received aspirin, Plavix, statin -On Zosyn for aspiration pneumonia coverage - lidoaciane drip, amiodarone drip, continue metoprolol, Lopressor as needed -cardiac echo ordered: EJF 45% (2) Wide-complex tachycardia: -has nonsutained wide complex tachycardia after stent placment -likely reperfusion arrhtymias -cardiology on consult, cardiology has spoken to electrophysiology in [place] who recommends continue medical management -lidocaine and amiodarone drip and mexiletine on hold, continue Toprol 25 twice daily, Lopressor as needed -After discussion with cardiology, patient was transferred to [facility] for cardiac ablation procedure for persistent wide-complex tachycardia Status: Acute (3) NSTEMI (non-ST elevated myocardial infarction): Status: Acute (4) Type 2 diabetes mellitus with hyperglycemia: -insulin sliding scale Status: Chronic (5) Benign essential hypertension: Status: Chronic (6) Atherosclerotic heart disease of [place] coronary artery without angina pectoris: Status: Chronic (7) Bilateral carotid artery stenosis: Status: Acute (8) History of ischemic cardiomyopathy: Status: Acute (9) Mixed hyperlipidemia: Physical Exam Urinary Catheter Management^: Rankin: Cath Placed During This Visit: yes Reason for Continuing Indwelling Catheter: Accurate Measurement of Urinary Output in Critically Ill Patients Urinary Catheter Date of Insertion: 08/09/20 Urinary Catheter Time of Insertion: 07:45 TS Data Data Completed and Pending: Completed Studies During Hospitalization Category Date Time Status CT angio chest PE protcl [id number] Stat Cat Scan 08/09/20 09:09 Completed ANESTHESIOLOGY TEACHER request for service Routin e Exams 08/09/20 12:46 Completed CXRP [XR chest 1V portable [id number]] S tat Exams 08/09/20 07:27 Completed XR chest 1V lolis ble [id number] Routine Exams 08/10/20 07:00 Completed XR chest 1V lolis ble [id number] Routine Exams 08/11/20 07:00 Completed XR chest 1V lolis ble [id number] Stat Exams 08/09/20 09:59 Completed XR chest 1V lolis ble [id number] Stat Exams 08/09/20 17:19 Completed XR chest 1V lolis ble [id number] Stat Exams 08/09/20 19:02 Completed XR chest 1V lolis ble [id number] Stat Exams 08/09/20 20:39 Completed XR chest 1V lolis ble [id number] Stat Exams 08/11/20 19:15 Completed CV carotid duplex BI* [id number] Routine Ultrasound 08/10/20 17:28 Completed CV echo complete* [id number] Stat Ultrasound 08/09/20 07:51 Completed Vitals: Last Vital Signs Temp 98.1 F 08/11/20 20:00 Pulse 42 L 08/11/20 22:45 Resp 14 08/11/20 22:17 BP 102/40 08/11/20 22:30 Pulse Ox 99 08/11/20 22:17 TS Medications Medications Home Medications meclizine 25 mg tablet 25 mg PO BID PRN 03/25/19 [History Confirmed 08/09/20] albuterol sulfate 2.5 mg INHALATION QID PRN #300 ml 06/22/19 [Rx Confirmed 08/09/20] arformoterol 15 mcg/2 mL solution for nebulization 2 ml INHALATION BID #120 ml 06/22/19 [Rx Confirmed 08/09/20] Diabetic shoes #1 ea 05/05/20 [Rx Confirmed 08/09/20] aspirin 81 mg tablet,delayed release 81 mg PO DAILY 07/28/20 [History Confirmed 08/09/20] amlodipine 10 mg tablet 10 mg PO QDAY #90 tab 07/29/20 [Rx Confirmed 08/09/20] atorvastatin 40 mg tablet 40 mg PO QDAY #90 tab 07/29/20 [Rx Confirmed 08/09/20] clonidine HCl 0.1 mg tablet 0.1 mg PO BID #180 tab 07/29/20 [Rx Confirmed 08/09/20] clopidogrel 75 mg tablet 75 mg PO QDAY #90 tab 07/29/20 [Rx Confirmed 08/09/20] furosemide 20 mg tablet 20 mg PO QAM PRN #90 tab 07/29/20 [Rx Confirmed 08/09/20] gabapentin 100 mg capsule 100 mg PO DAILY #90 cap 07/29/20 [Rx Confirmed 08/09/20] liraglutide 0.6 mg/0.1 mL (18 mg/3 mL) subcutaneous pen injector 1.8 mg SUBCUT DAILY #9 ml 07/29/20 [Rx Confirmed 08/09/20] losartan 100 mg tablet 100 mg PO QDAY #90 tab 07/29/20 [Rx Confirmed 08/09/20] metformin 1,000 mg tablet 1,000 mg PO BID #180 tab 07/29/20 [Rx Confirmed 08/09/20] metoprolol succinate 100 mg tablet,extended release 24 hr 100 mg PO QDAY #90 tab 07/29/20 [Rx Confirmed 08/09/20] pen needle, diabetic 33 gauge x 5/32 #100 each 07/29/20 [Rx Confirmed 08/09/20] Discharge Plan Discharge Patient Disposition: Xfer Short-Term Hosp Condition: Stable Prescriptions: No Action meclizine 25 mg tablet 25 mg PO BID PRN (Reason: dizziness) RF: 0 aspirin [Adult Aspirin Regimen] 81 mg tablet,delayed release (DR/EC) 81 mg PO DAILY RF: 0 (DME) Diabetic shoes See Rx Instructions .Route .MEDSUPPLY Qty: 1 RF: 0 amlodipine 10 mg tablet 10 mg PO QDAY Qty: 90 RF: 0 atorvastatin [Lipitor] 40 mg tablet 40 mg PO QDAY Qty: 90 RF: 0 clonidine HCl 0.1 mg tablet 0.1 mg PO BID Qty: 180 RF: 0 clopidogrel [Plavix] 75 mg tablet 75 mg PO QDAY Qty: 90 RF: 0 furosemide 20 mg tablet 20 mg PO QAM PRN (Reason: edema) Qty: 90 RF: 0 gabapentin 100 mg capsule 100 mg PO DAILY Qty: 90 RF: 0 Victoza 3-Pipe 0.6 mg/0.1 mL (18 mg/3 mL) pen injector 1.8 mg SUBCUT DAILY Qty: 9 RF: 2 losartan [Cozaar] 100 mg tablet 100 mg PO QDAY Qty: 90 RF: 0 metformin 1,000 mg tablet 1,000 mg PO BID Qty: 180 RF: 0 metoprolol succinate 100 mg tablet extended release 24 hr 100 mg PO QDAY Qty: 90 RF: 0 (DME) pen needle, diabetic 33 gauge x 5/32 needle See Rx Instructions .ROUTE .MEDSUPPLY Qty: 100 RF: 5 Brovana 15 mcg/2 mL solution for nebulization 2 ml INHALATION BID Qty: 120 RF: 5 albuterol sulfate 2.5 mg /3 mL (0.083 %) solution for nebulization 2.5 mg INHALATION QID PRN (Reason: shortness of breath or wheezing) Qty: 300 RF: 5 Discharge Orders: Discharge Order (Routine); Ordered 08/23/20 Ordered By: Oswaldo Lewis Referrals: Robert Marrero, SUPERVISOR ADVERTISING DISPATCH CLERKSAlicjaC [Primary Care Provider] - Patient Instructions: Opioid Safety Activity Restrictions/Additional Instructions: sent by air evac Transfer Attestations Time Spent in Transfer Care*: critical care time Critical Care Time (min): 55 Quality Metrics Clinical Quality Measures: During this hospital stay, did patient experience: AMI Clinical Trial Participant: No Contraindication to aspirin (AMI): Aspirin given Contraindication to statin: Statin prescribed Coding Level of Care Code Acute Chronograph Operator for Chg Fwd Diagnoses Recurrent ventricular tachycardia I47.2 CHF (congestive heart failure), NYHA class IV I50.23 Congestive heart failure type: systolic Congestive heart failure chronicity: acute on chronic Bilateral carotid artery stenosis I65.23 Diabetes E11.9 DM (diabetes mellitus), secondary, with neurologic complications E13.49 Acute respiratory failure with hypoxia J96.01
== END 2020-08-11 23:15 | disposition short-term general hospital (02) | DRG 246 ==
LOC: ER 07:24 → ICU 08:36
PROVIDERS: Internal Medicine Cardiovascular Disease; Admitting Provider Family Medicine; Emergency Provider Family Medicine; PCP Nurse Practitioner; Visit Provider Family Medicine
PROC: 027034Z Dilation of Coronary Artery, One Artery with Drug-eluting Intraluminal Device, Percutaneous Approach (ICD-10-PCS; principal; 2020-08-09 12:45)
PROC: 027034Z Dilation of Coronary Artery, One Artery with Drug-eluting Intraluminal Device, Percutaneous Approach (ICD-10-PCS; 2020-08-09 12:45)
DX: I47.2 Ventricular tachycardia (principal); I50.23 Acute on chronic systolic (congestive) heart failure; J96.01 Acute respiratory failure with hypoxia; R57.0 Cardiogenic shock; E87.3 Alkalosis; I25.82 Chronic total occlusion of coronary artery; Z95.5 Presence of coronary angioplasty implant and graft; I25.5 Ischemic cardiomyopathy; Z86.73 Personal history of transient ischemic attack (TIA), and cerebral infarction without residual deficits; J44.9 Chronic obstructive pulmonary disease, unspecified; Z87.891 Personal history of nicotine dependence; E11.65 Type 2 diabetes mellitus with hyperglycemia; E11.51 Type 2 diabetes mellitus with diabetic peripheral angiopathy without gangrene; I11.0 Hypertensive heart disease with heart failure; E78.2 Mixed hyperlipidemia; I65.23 Occlusion and stenosis of bilateral carotid arteries
CPT/HCPCS: 31500; 36415; 36416; 36592; 36600; 51702; 71045; 71275; 80051; 80053; 82009; 82330; 82550; 82553; 82803; 82805; 82962; 83605; 83735; 83880; 84100; 84145; 84484; 85025; 85347; 85378; 85610; 85730; 86140; 86403; 87040; 87070; 87077; 87205; 87641; 93005; 93306; 93454; 93880; 94002; 94003; 94640; 94660; 94799; 96361; 96372; 96374; 96375; 99291; A4570; C1725; C1751; C1769; C1874; C1887; C1894; C9113; C9600; J0282; J0330; J1265; J1644; J1650; J1815; J1940; J2001; J2250; J2270; J2405; J2543; J2704; J3010; J3246; J3475; J3490; J7030; J7060; Q9967